=== PATIENT | female | born 1955 | race African-American/Black ===

== ENCOUNTER 2020-09-22 08:56 | Inpatient (IN) ==
[2020-09-22 10:04] LABS: Basophils % 0.2 % (0.0-0.8); Hematocrit 34.8 VOL% (35.7-47.0); Hemoglobin 10.8 GM/DL (12.0-16.0); Immature Granulocytes % 1.6 %; Immature Granulocytes Absolute 0.09 #; Lymphocytes # 0.9 10*3/uL (1.4-4.0); Lymphocytes % 16.4 % (21.3-54.2); Mean Corpuscular Volume 77.2 FL (87-102); Mean Platelet Volume 12.6 FL (9.6-12.0); Monocytes % 10.7 % (1.7-12.7); Neutrophils % 71.1 % (38.7-73.9); Platelet Count 157 T/CUMM (130-400); Red Blood Count 4.51 MC/CUMM (3.8-5.5); Red Cell Distribution Width 14.2 % (9.3-17.3); White Blood Count 5.6 T/CUMM (4-12)
[2020-09-22 10:23] LABS: Albumin 3.2 G/DL (3.4-5.0); Amorphous Crystals,Urine Occasional /HPF (Few); Bacteria,Urine Occasional /HPF (Few); Bilirubin,Total 0.4 MG/DL (0.2-1.0); Bilirubin,Urine Negative (Negative); Blood, Urine Moderate mg/dL (Negative); Calcium 8.2 MG/DL (8.5-10.1); Glucose,Urine (UA) Negative (Negative); Hyaline Casts,Urine 33 /LPF (0-3); Ketones,Urine Negative (Negative); Mucus,Urine Occasional /LPF (Occasional); Nitrite,Urine Negative (Negative); Osmolality,Calculated 300.8 MOS/KG (273-304); Protein,Urine 100 MG/DL; RBC,Urine 1 /HPF (0-4); Total Protein 7.4 G/DL (6.4-8.3); Urine Appearance Slightly Hazy (Clear); Urine Color Amber (Yellow); Urine Specific Gravity 1.018 (1.001-1.035); Urine Urobilinogen < 2.0 EU/DL (0.2-1.0); WBC,Urine 1 /HPF (0-6)
[2020-09-22 10:36] LABS: Ferritin 225.4 ng/ml (8-252)
[2020-09-22] MEDS ORDERED: cefTRIAXone 1,000 MG in SODIUM CHLORIDE 0.9% 100 ML IV STA (11:01)
[2020-09-22 11:13] LABS: Anisocytosis Slight; Band Neutrophils 8 % (0-10); Eosinophils 1 % (0-10); Hypochromasia 1+; Lymphocytes 17 % (20-55); Platelet Estimate Normal; Segmented Neutrophils 64 % (50-85); Total Cells Counted 100
[2020-09-22] MEDS ORDERED: DOCUSATE SODIUM 100 MG CAPSULE PO PRN (12:45)
[2020-09-22] MEDS ORDERED: GLUCAGON 1 MG VIAL IM PRN ×2 (12:45)
[2020-09-22] MEDS ORDERED: DEXTROSE 50% 25 GM/50 ML VIAL IV PRN ×2 (12:45)
[2020-09-22] MEDS ORDERED: ONDANSETRON 4 MG/2 ML VIAL IV PRN (12:45)
[2020-09-22] MEDS ORDERED: ACETAMINOPHEN 325 MG TABLET PO PRN (12:45)
[2020-09-22] MEDS ORDERED: AZITHROMYCIN INJ 500 MG in SODIUM CHLORIDE 0.9% 250 ML IV ONE (12:52)
[2020-09-22] MEDS: HEPARIN 5,000 UNIT/1 ML VIAL SUBCUT SCH ×2 (16:29→20:19)
[2020-09-22] MEDS: SODIUM CHLORIDE 0.9% 1,000 ML IV SCH (16:30)
[2020-09-22] MEDS: INSULIN REGULAR 100 UNIT/ML SUBCUT SCH ×2 (17:04→21:08)
[2020-09-22] MEDS: ASCORBIC ACID 500 MG TABLET PO SCH (20:20)
[2020-09-23] MEDS: HEPARIN 5,000 UNIT/1 ML VIAL SUBCUT SCH ×3 (05:50→21:55)
[2020-09-23 06:33] LABS: Basophils % 0.2 % (0.0-0.8); Hematocrit 36.2 VOL% (35.7-47.0); Hemoglobin 10.8 GM/DL (12.0-16.0); Immature Granulocytes % 1.1 %; Immature Granulocytes Absolute 0.06 #; Lymphocytes # 0.9 10*3/uL (1.4-4.0); Lymphocytes % 16.5 % (21.3-54.2); Mean Corpuscular HGB Conc 29.8 GM/DL (32-36); Mean Corpuscular Volume 81.2 FL (87-102); Mean Platelet Volume 12.8 FL (9.6-12.0); Monocytes % 8.9 % (1.7-12.7); NRBC # 0.02 10*3/uL; Neutrophils % 73.3 % (38.7-73.9); Platelet Count 171 T/CUMM (130-400); Red Blood Count 4.46 MC/CUMM (3.8-5.5); Red Cell Distribution Width 14.4 % (9.3-17.3); White Blood Count 5.7 T/CUMM (4-12)
[2020-09-23] MEDS: SODIUM CHLORIDE 0.9% 1,000 ML IV SCH ×2 (06:48→21:53)
[2020-09-23 07:03] LABS: Alanine Aminotransferase 25 U/L (13-56); Albumin 2.7 G/DL (3.4-5.0); Alkaline Phosphatase 49 U/L (45-117); Aspartate Amino Transferase 58 U/L (0-37); Bilirubin,Total < 0.39 MG/DL (0.2-1.0); Blood Urea Nitrogen 92 MG/DL (7-18); Estimated Glom Filtration Rate 16 ML/MIN; Glucose 136 MG/DL (74-106); Osmolality,Calculated 306.5 MOS/KG (273-304); Thyroid Stimulating Hormone 0.406 uIU/ml (0.358-3.74); Total Protein 7.3 G/DL (6.4-8.3)
[2020-09-23] MEDS: INSULIN REGULAR 100 UNIT/ML SUBCUT SCH ×4 (07:18→21:57)
[2020-09-23 07:28] LABS: Ferritin 207.7 ng/ml (8-252)
[2020-09-23 07:50] LABS: Anisocytosis 1+; Band Neutrophils 4 % (0-10); Burr Cells Few; Lymphocytes 15 % (20-55); Metamyelocytes 1 %; Nucleated Red Blood Cells 1 (0-5); Ovalocytes Few; Platelet Estimate Normal; Segmented Neutrophils 69 % (50-85); Total Cells Counted 100
[2020-09-23] MEDS: CHOLECALCIFEROL 1,000 UNIT TABLET PO SCH (09:45)
[2020-09-23] MEDS: PANTOPRAZOLE 40 MG TABLET PO SCH (09:45)
[2020-09-23] MEDS: AZITHROMYCIN 250 MG TABLET PO SCH (09:45)
[2020-09-23] MEDS: DEXAMETHASONE 4 MG/1 ML VIAL IV SCH (09:45)
[2020-09-23] MEDS: ZINC GLUCONATE 50 MG TABLET PO SCH (09:45)
[2020-09-23] MEDS: ASCORBIC ACID 500 MG TABLET PO SCH ×2 (09:45→21:55)
[2020-09-23] MEDS: cefTRIAXone 1,000 MG in SYRINGE 1 EACH IV SCH (12:37)
[2020-09-24 05:44] LABS: Hematocrit 32.9 VOL% (35.7-47.0); Hemoglobin 10.2 GM/DL (12.0-16.0); Immature Granulocytes % 4.8 %; Immature Granulocytes Absolute 0.25 #; Lymphocytes # 0.7 10*3/uL (1.4-4.0); Lymphocytes % 12.5 % (21.3-54.2); Mean Corpuscular Volume 78.3 FL (87-102); Mean Platelet Volume 12.8 FL (9.6-12.0); Monocytes % 10.2 % (1.7-12.7); NRBC # 0.02 10*3/uL; Neutrophils % 72.5 % (38.7-73.9); Platelet Count 215 T/CUMM (130-400); Red Cell Distribution Width 14.4 % (9.3-17.3); White Blood Count 5.2 T/CUMM (4-12)
[2020-09-24 06:20] LABS: Band Neutrophils 1 % (0-10); Lymphocytes 10 % (20-55); Nucleated Red Blood Cells 1 (0-5); Platelet Estimate Adequate; Segmented Neutrophils 74 % (50-85); Total Cells Counted 100
[2020-09-24 06:21] LABS: Hypochromasia 1+; Microcytosis 1+; Ovalocytes Slight
[2020-09-24] MEDS: HEPARIN 5,000 UNIT/1 ML VIAL SUBCUT SCH ×3 (06:40→21:26)
[2020-09-24] MEDS: DEXAMETHASONE 4 MG/1 ML VIAL IV SCH (08:18)
[2020-09-24] MEDS: AZITHROMYCIN 250 MG TABLET PO SCH (08:19)
[2020-09-24] MEDS: ASCORBIC ACID 500 MG TABLET PO SCH ×2 (08:19→21:25)
[2020-09-24] MEDS: ZINC GLUCONATE 50 MG TABLET PO SCH (08:19)
[2020-09-24] MEDS: PANTOPRAZOLE 40 MG TABLET PO SCH (08:19)
[2020-09-24] MEDS: CHOLECALCIFEROL 1,000 UNIT TABLET PO SCH (08:19)
[2020-09-24] MEDS: INSULIN REGULAR 100 UNIT/ML SUBCUT SCH ×4 (08:59→21:48)
[2020-09-24] MEDS: SODIUM BICARB INJ 100 MEQ in DEXTROSE 5% NACL 0.22% 1,000 ML IV SCH (11:23)
[2020-09-24] MEDS: SODIUM CHLORIDE 0.9% 1,000 ML IV SCH (11:23)
[2020-09-24] MEDS: cefTRIAXone 1,000 MG in SYRINGE 1 EACH IV SCH (11:23)
[2020-09-24 12:13] LABS: Alanine Aminotransferase 28 U/L (13-56); Albumin 2.9 G/DL (3.4-5.0); Alkaline Phosphatase 55 U/L (45-117); Aspartate Amino Transferase 53 U/L (0-37); Bilirubin,Total < 0.39 MG/DL (0.2-1.0); Blood Urea Nitrogen 67 MG/DL (7-18); Calcium 8.8 MG/DL (8.5-10.1); Estimated Glom Filtration Rate 37 ML/MIN; Glucose 147 MG/DL (74-106); Osmolality,Calculated 307.8 MOS/KG (273-304); Total Protein 7.9 G/DL (6.4-8.3)
[2020-09-24] MEDS: carvediloL 3.125 MG TABLET PO SCH ×2 (15:15→21:30)
[2020-09-24] MEDS ORDERED: INSULIN GLARGINE 100 UNIT/ML SUBCUT SCH (21:00)
[2020-09-24] MEDS ORDERED: ROSUVASTATIN 20 MG TABLET PO SCH (21:00)
[2020-09-24] MEDS: PREGABALIN 100 MG CAPSULE PO SCH (21:25)
[2020-09-25] MEDS: HEPARIN 5,000 UNIT/1 ML VIAL SUBCUT SCH (05:02)
[2020-09-25] MEDS: SODIUM BICARB INJ 100 MEQ in DEXTROSE 5% NACL 0.22% 1,000 ML IV SCH (05:03)
[2020-09-25 06:39] LABS: Risk Ratio 3.83; VLDL CHOLESTEROL 47.6 MG/DL
[2020-09-25 07:48] LABS: Albumin 2.9 G/DL (3.4-5.0); Bilirubin,Total 0.4 MG/DL (0.2-1.0); Calcium 8.6 MG/DL (8.5-10.1); Total Protein 7.2 G/DL (6.4-8.3)
[2020-09-25] MEDS: DEXAMETHASONE 4 MG/1 ML VIAL IV SCH (08:04)
[2020-09-25] MEDS: INSULIN REGULAR 100 UNIT/ML SUBCUT SCH ×2 (08:04→11:59)
[2020-09-25] MEDS: CHOLECALCIFEROL 1,000 UNIT TABLET PO SCH (08:05)
[2020-09-25] MEDS: carvediloL 3.125 MG TABLET PO SCH (08:05)
[2020-09-25] MEDS: ASCORBIC ACID 500 MG TABLET PO SCH (08:05)
[2020-09-25] MEDS: ZINC GLUCONATE 50 MG TABLET PO SCH (08:06)
[2020-09-25] MEDS: AZITHROMYCIN 250 MG TABLET PO SCH (08:06)
[2020-09-25] MEDS: PANTOPRAZOLE 40 MG TABLET PO SCH (08:06)
[2020-09-25] MEDS ORDERED: SODIUM POLYSTYRENE SULFATE 15 GM/60 ML BOTTLE PO ONE (08:44)
[2020-09-25] MEDS ORDERED: FERROUS SULFATE 325 MG TABLET PO SCH (09:00)
[2020-09-25] MEDS ORDERED: amLODIPine 10 MG TABLET PO SCH (09:00)
[2020-09-25] MEDS ORDERED: PIOGLITAZONE 15 MG TABLET PO SCH (09:00)
[2020-09-25] MEDS ORDERED: VITAMIN E 400 UNIT CAPSULE PO SCH (09:00)
[2020-09-25] MEDS: PREGABALIN 100 MG CAPSULE PO SCH (09:58)
[2020-09-25 11:30] VITALS: BP 128/62
[2020-09-25] MEDS: cefTRIAXone 1,000 MG in SYRINGE 1 EACH IV SCH ×2 (11:59→12:05)
== END 2020-09-25 12:50 | disposition home or self-care (01) | DRG 177 ==
LOC: EDUNIT# → EDBD → N.ED 08:56 → MERGE 12:06 → N.EDINP 12:06 → SUATTDRO 12:06 → N.EDINP 13:50 → N.2E 14:24
PROVIDERS: ADMIT Internal Medicine; ATTEND Internal Medicine

== ENCOUNTER 2020-10-11 11:08 | Inpatient (IN) ==
[2020-10-11 13:45] LABS: Basophils % 0.1 % (0.0-0.8); Eosinophils % 0.2 % (0.00-10.9); Hematocrit 32.7 VOL% (35.7-47.0); Hemoglobin 9.8 GM/DL (12.0-16.0); Immature Granulocytes % 0.5 %; Immature Granulocytes Absolute 0.06 #; Lymphocytes # 0.7 10*3/uL (1.4-4.0); Lymphocytes % 6.1 % (21.3-54.2); Monocytes % 4.9 % (1.7-12.7); Neutrophils % 88.2 % (38.7-73.9); Platelet Count 160 T/CUMM (130-400); Red Blood Count 4.14 MC/CUMM (3.8-5.5); Red Cell Distribution Width 15.3 % (9.3-17.3); White Blood Count 11.6 T/CUMM (4-12)
[2020-10-11 14:02] LABS: Alanine Aminotransferase 37 U/L (13-56); Albumin 2.3 G/DL (3.4-5.0); Alkaline Phosphatase 99 U/L (45-117); Aspartate Amino Transferase 26 U/L (0-37); Bilirubin,Total < 0.39 MG/DL (0.2-1.0); Blood Urea Nitrogen 87 MG/DL (7-18); Calcium 9.2 MG/DL (8.5-10.1); Carbon Dioxide 20 MMOL/L (21-32); Estimated Glom Filtration Rate 9 ML/MIN; Osmolality,Calculated 306.9 MOS/KG (273-304); Sodium 122 MMOL/L (136-145); Total Protein 8.2 G/DL (6.4-8.3)
[2020-10-11 14:14] LABS: Glucose 737 MG/DL (74-106); Potassium 6.3 MMOL/L (3.5-5.1)
[2020-10-11] MEDS ORDERED: SODIUM CHLORIDE 0.9% 1,000 ML IV STA (14:34)
[2020-10-11] MEDS ORDERED: INSULIN REGULAR 100 UNIT/ML IV STA (14:39)
[2020-10-11] MEDS ORDERED: SODIUM CHLORIDE 0.9% 500 ML IV STA (14:40)
[2020-10-11] MEDS ORDERED: SODIUM BICARBONATE 50 MEQ/50 ML VIAL IV STA (14:41)
[2020-10-11] MEDS ORDERED: LACTATED RINGERS 1,000 ML IV ONE (14:55)
[2020-10-11] MEDS ORDERED: ONDANSETRON 4 MG/2 ML VIAL IV PRN (15:27)
[2020-10-11] MEDS ORDERED: ALBUTEROL 2.5 MG/3 ML NEB RESP TX PRN (15:27)
[2020-10-11] MEDS ORDERED: FAMOTIDINE 20 MG/2 ML VIAL IV SCH (15:30)
[2020-10-11 15:50] LABS: Osmolality,Calculated 307.9 MOS/KG (273-304)
[2020-10-11 15:52] LABS: Potassium 6.8 MMOL/L (3.5-5.1)
[2020-10-11] MEDS ORDERED: ALBUTEROL/IPRATROPIUM 3 ML NEB RESP TX PRN (16:14)
[2020-10-11] MEDS ORDERED: SODIUM CHLORIDE 0.9% 2,000 ML IV ONE (17:17)
[2020-10-11] MEDS: cefTRIAXone 1,000 MG in SYRINGE 1 EACH IV SCH (17:29)
[2020-10-11] MEDS: methylPREDNISolone SOD SUC 40 MG/1 ML VIAL IV SCH (17:30)
[2020-10-11] MEDS: INSULIN LISPRO 100 UNIT/ML SUBCUT SCH (17:30)
[2020-10-11] MEDS: FAMOTIDINE 20 MG/2 ML VIAL IV SCH (17:30)
[2020-10-11 18:07] LABS: Bacteria,Urine Moderate /HPF (Few); Bilirubin,Urine Negative (Negative); Blood, Urine Small mg/dL (Negative); Glucose,Urine (UA) >=500 mg/dL (Negative); Hyaline Casts,Urine 9 /LPF (0-3); Ketones,Urine Negative (Negative); Mucus,Urine Occasional /LPF (Occasional); Nitrite,Urine Negative (Negative); Protein,Urine 30 MG/DL; RBC,Urine 10 /HPF (0-4); Urine Appearance CLOUDY (Clear); Urine Color Yellow (Yellow); Urine Specific Gravity 1.012 (1.001-1.035); Urine Urobilinogen < 2.0 EU/DL (0.2-1.0); WBC,Urine 10 /HPF (0-6)
[2020-10-11] MEDS: ENOXAPARIN 30 MG/0.3 ML SYRINGE SUBCUT SCH (20:58)
[2020-10-12] MEDS: INSULIN LISPRO 100 UNIT/ML SUBCUT SCH ×6 (00:18→21:20)
[2020-10-12 03:56] LABS: Basophils % 0.1 % (0.0-0.8); Hematocrit 29.4 VOL% (35.7-47.0); Hemoglobin 9.2 GM/DL (12.0-16.0); Immature Granulocytes % 0.6 %; Immature Granulocytes Absolute 0.05 #; Lymphocytes # 0.3 10*3/uL (1.4-4.0); Lymphocytes % 3.4 % (21.3-54.2); Mean Corpuscular HGB Conc 31.3 GM/DL (32-36); Mean Corpuscular Volume 76.6 FL (87-102); Mean Platelet Volume 14.2 FL (9.6-12.0); Monocytes % 1.2 % (1.7-12.7); Neutrophils % 94.7 % (38.7-73.9); Platelet Count 126 T/CUMM (130-400); Red Blood Count 3.84 MC/CUMM (3.8-5.5); Red Cell Distribution Width 14.8 % (9.3-17.3); White Blood Count 9.1 T/CUMM (4-12)
[2020-10-12 04:23] LABS: Albumin 1.9 G/DL (3.4-5.0); Bilirubin,Total 0.4 MG/DL (0.2-1.0); Calcium 8.8 MG/DL (8.5-10.1); Osmolality,Calculated 301.4 MOS/KG (273-304); Risk Ratio 2.3; Total Protein 7.2 G/DL (6.4-8.3)
[2020-10-12 04:35] LABS: Hypochromasia Slight; Lymphocytes 3 % (20-55); Microcytosis 1+; Platelet Estimate Normal; Segmented Neutrophils 96 % (50-85); Total Cells Counted 100
[2020-10-12] MEDS: methylPREDNISolone SOD SUC 40 MG/1 ML VIAL IV SCH ×2 (05:14→16:38)
[2020-10-12] MEDS ORDERED: INSULIN GLARGINE 100 UNIT/ML SUBCUT ONE (14:37)
[2020-10-12] MEDS: amLODIPine 10 MG TABLET PO SCH (15:23)
[2020-10-12] MEDS: FAMOTIDINE 20 MG/2 ML VIAL IV SCH (16:36)
[2020-10-12] MEDS: cefTRIAXone 1,000 MG in SYRINGE 1 EACH IV SCH (16:38)
[2020-10-12] MEDS: INSULIN GLARGINE 100 UNIT/ML SUBCUT SCH (21:20)
[2020-10-12] MEDS: ENOXAPARIN 30 MG/0.3 ML SYRINGE SUBCUT SCH (21:21)
[2020-10-12] MEDS: ROSUVASTATIN 20 MG TABLET PO SCH (21:21)
[2020-10-13] MEDS: INSULIN LISPRO 100 UNIT/ML SUBCUT SCH ×6 (02:09→21:41)
[2020-10-13] MEDS: methylPREDNISolone SOD SUC 40 MG/1 ML VIAL IV SCH ×2 (06:09→16:22)
[2020-10-13 06:30] LABS: Hematocrit 30.9 VOL% (35.7-47.0); Hemoglobin 9.7 GM/DL (12.0-16.0); Immature Granulocytes % 0.9 %; Lymphocytes # 0.6 10*3/uL (1.4-4.0); Lymphocytes % 5.2 % (21.3-54.2); Mean Corpuscular HGB Conc 31.4 GM/DL (32-36); Mean Corpuscular Volume 75.4 FL (87-102); Mean Platelet Volume 13.8 FL (9.6-12.0); Monocytes % 3.1 % (1.7-12.7); Neutrophils % 90.8 % (38.7-73.9); Red Cell Distribution Width 14.4 % (9.3-17.3); White Blood Count 10.8 T/CUMM (4-12)
[2020-10-13 06:33] LABS: Platelet Count 207 T/CUMM (130-400)
[2020-10-13 06:49] LABS: Hypochromasia 1+; Lymphocytes 3 % (20-55); Microcytosis 1+; Platelet Estimate Adequate; Segmented Neutrophils 95 % (50-85); Total Cells Counted 100
[2020-10-13 06:50] LABS: Calcium 9.4 MG/DL (8.5-10.1); Osmolality,Calculated 299.5 MOS/KG (273-304); Potassium 5.8 MMOL/L (3.5-5.1)
[2020-10-13] MEDS ORDERED: MAGNESIUM SULF RIDER 2 GM in PREMIX 1 EACH IV ONE (08:44)
[2020-10-13] MEDS ORDERED: SODIUM BICARB INJ 50 MEQ in STERILE WATER INJ 1,000 ML IV SCH (09:00)
[2020-10-13] MEDS: amLODIPine 10 MG TABLET PO SCH (09:05)
[2020-10-13] MEDS: INSULIN GLARGINE 100 UNIT/ML SUBCUT SCH ×2 (09:05→21:40)
[2020-10-13] MEDS: SODIUM CHLORIDE 0.9% 1,000 ML IV SCH (09:06)
[2020-10-13] MEDS: SODIUM BICARBONATE 650 MG TABLET PO SCH ×2 (14:29→21:32)
[2020-10-13] MEDS ORDERED: HydrOXYzine PAMOATE 50 MG CAPSULE PO PRN (16:11)
[2020-10-13] MEDS: FAMOTIDINE 20 MG/2 ML VIAL IV SCH (16:22)
[2020-10-13] MEDS: cefTRIAXone 1,000 MG in SYRINGE 1 EACH IV SCH (16:22)
[2020-10-13] MEDS ORDERED: GABAPENTIN 300 MG CAPSULE PO SCH (21:00)
[2020-10-13] MEDS: PREGABALIN 100 MG CAPSULE PO SCH (21:31)
[2020-10-13] MEDS: ROSUVASTATIN 20 MG TABLET PO SCH (21:31)
[2020-10-13] MEDS: ENOXAPARIN 30 MG/0.3 ML SYRINGE SUBCUT SCH (21:33)
[2020-10-14] MEDS: INSULIN LISPRO 100 UNIT/ML SUBCUT SCH ×3 (02:41→10:15)
[2020-10-14] MEDS: methylPREDNISolone SOD SUC 40 MG/1 ML VIAL IV SCH (05:26)
[2020-10-14 05:40] LABS: Hematocrit 30.9 VOL% (35.7-47.0); Hemoglobin 9.8 GM/DL (12.0-16.0); Immature Granulocytes % 0.9 %; Immature Granulocytes Absolute 0.08 #; Lymphocytes # 0.6 10*3/uL (1.4-4.0); Lymphocytes % 6.6 % (21.3-54.2); Mean Corpuscular HGB Conc 31.7 GM/DL (32-36); Mean Corpuscular Volume 74.6 FL (87-102); Mean Platelet Volume 13.7 FL (9.6-12.0); Monocytes % 5.1 % (1.7-12.7); Neutrophils % 87.4 % (38.7-73.9); Platelet Count 217 T/CUMM (130-400); Red Blood Count 4.14 MC/CUMM (3.8-5.5); Red Cell Distribution Width 14.4 % (9.3-17.3); White Blood Count 8.9 T/CUMM (4-12)
[2020-10-14 06:00] LABS: Calcium 9.1 MG/DL (8.5-10.1); Osmolality,Calculated 299.8 MOS/KG (273-304); Potassium 5.1 MMOL/L (3.5-5.1)
[2020-10-14 06:04] LABS: Hypochromasia 1+; Microcytosis 1+; Platelet Estimate Adequate
[2020-10-14] MEDS: SODIUM CHLORIDE 0.9% 1,000 ML IV SCH (06:16)
[2020-10-14] MEDS: SODIUM BICARBONATE 650 MG TABLET PO SCH (08:51)
[2020-10-14] MEDS: INSULIN GLARGINE 100 UNIT/ML SUBCUT SCH (08:52)
[2020-10-14] MEDS: PREGABALIN 100 MG CAPSULE PO SCH (08:52)
[2020-10-14] MEDS: amLODIPine 10 MG TABLET PO SCH (08:52)
[2020-10-14] MEDS ORDERED: ZINC GLUCONATE 50 MG TABLET PO SCH (09:00)
[2020-10-14] MEDS ORDERED: VITAMIN E 400 UNIT CAPSULE PO SCH (09:00)
[2020-10-14] MEDS ORDERED: FERROUS SULFATE 325 MG TABLET PO SCH (09:00)
[2020-10-14] MEDS ORDERED: CHOLECALCIFEROL 1,000 UNIT TABLET PO SCH (09:00)
[2020-10-14 12:55] VITALS: BP 140/76
== END 2020-10-14 12:57 | disposition home or self-care (01) | DRG 682 ==
LOC: N.ED 11:08 → SUATTDRO 15:28 → N.EDINP 15:28 → N.CC 16:59 → N.5E 10-12 15:06
PROVIDERS: ADMIT Internal Medicine; ATTEND Internal Medicine

== ENCOUNTER 2022-07-07 08:14 | Inpatient (IN) ==
[2022-07-07] MEDS ORDERED: ONDANSETRON 4 MG/2 ML VIAL ONE (08:47)
[2022-07-07] MEDS ORDERED: ONDANSETRON 4 MG/2 ML VIAL IV STA (08:50)
[2022-07-07] MEDS ORDERED: SODIUM CHLORIDE 0.9% 1,000 ML IV STA ×3 (08:50→10:37)
[2022-07-07 09:16] LABS: Basophils % 0.1 % (0.0-0.8); Eosinophils % 0.1 % (0.00-10.9); Hematocrit 40.1 VOL% (35.7-47.0); Hemoglobin 12.6 GM/DL (12.0-16.0); Immature Granulocytes % 0.6 %; Immature Granulocytes Absolute 0.11 #; Lymphocytes # 1.1 10*3/uL (1.4-4.0); Lymphocytes % 6.2 % (21.3-54.2); Mean Corpuscular HGB Conc 31.4 GM/DL (32-36); Mean Corpuscular Volume 75.7 FL (87-102); Monocytes % 5.5 % (1.7-12.7); Neutrophils % 87.5 % (38.7-73.9); Platelet Count 129 T/CUMM (130-400); Red Cell Distribution Width 14.3 % (9.3-17.3); White Blood Count 17.7 T/CUMM (4-12)
[2022-07-07 09:29] LABS: Albumin 2.6 G/DL (3.4-5.0); Bilirubin,Total 0.4 MG/DL (0.20-1.00); Calcium 8.1 MG/DL (8.5-10.1); Osmolality,Calculated 312.1 MOS/KG (273-304); Potassium 5.5 MMOL/L (3.5-5.1); Total Protein 5.6 G/DL (6.4-8.2)
[2022-07-07 10:31] LABS: Amorphous Crystals,Urine Occasional /HPF (Few); Bilirubin,Urine Negative (Negative); Blood, Urine Moderate mg/dL (Negative); Glucose,Urine (UA) 50 mg/dL (Negative); Hyaline Casts,Urine 3 /LPF (0-3); Ketones,Urine Negative (Negative); Mucus,Urine Occasional /LPF (Occasional); Nitrite,Urine Negative (Negative); Protein,Urine 30 mg/dL (Negative); Squamous Epithelial Cell,Urine Occasional /HPF (0-10); Urine Appearance CLOUDY (Clear); Urine Color Yellow (Yellow); Urine Specific Gravity 1.018 (1.001-1.035); Urine Urobilinogen < 2.0 eU/dL (<2.0)
[2022-07-07] MEDS ORDERED: DOCUSATE SODIUM 100 MG CAPSULE PO PRN (10:37)
[2022-07-07] MEDS ORDERED: GLUCAGON 1 MG VIAL IM PRN (10:37)
[2022-07-07] MEDS ORDERED: DEXTROSE 10% 250 ML BAG IV PRN (10:44)
[2022-07-07 12:06] LABS: Calcium 7.7 MG/DL (8.5-10.1); Osmolality,Calculated 310.1 MOS/KG (273-304); Potassium 5.6 MMOL/L (3.5-5.1)
[2022-07-07 12:18] LABS: Arterial Base Excess iSTAT -9 MMOL/L (-2.5-2.5); Arterial Bicarbonate iSTAT 17.9 MMOL/L (20-26); Arterial O2 Saturation iSTAT 74 % (95-100); Arterial PCO2 iSTAT 39 MM HG (35-48); Arterial PO2 iSTAT 45 MM HG (80-95); Arterial Total CO2 iSTAT 19 MMO/L (23-27); Arterial pH iSTAT 7.266 (7.35-7.45)
[2022-07-07] MEDS: SODIUM CHLORIDE 0.45% 1,000 ML IV SCH ×3 (13:44→23:09)
[2022-07-07] MEDS: CIPROFLOXACIN INJ 400 MG/200 ML PREMIX IV SCH (13:45)
[2022-07-07] MEDS: INSULIN LISPRO 100 UNIT/ML SUBCUT SCH ×2 (13:46→17:24)
[2022-07-07] MEDS: metroNIDAZOLE INJ 500 MG/100 ML PREMIX IV SCH (13:46)
[2022-07-07] MEDS: HydrOXYzine PAMOATE 25 MG CAPSULE PO SCH ×2 (14:40→22:18)
[2022-07-07] MEDS: SODIUM ZIRCONIUM CYCLOSILICATE 10 GM PACK PO SCH (14:43)
[2022-07-07 17:31] LABS: Calcium 7.4 MG/DL (8.5-10.1)
[2022-07-07] MEDS: MORPHINE ER 15 MG TABLET PO SCH (22:19)
[2022-07-07] MEDS: HEPARIN 5,000 UNIT/1 ML VIAL SUBCUT SCH (22:21)
[2022-07-07] MEDS: ONDANSETRON 4 MG/2 ML VIAL IV PRN (22:21)
[2022-07-08 00:07] LABS: Calcium 7.8 MG/DL (8.5-10.1); Osmolality,Calculated 308.1 MOS/KG (273-304); Potassium 4.9 MMOL/L (3.5-5.1)
[2022-07-08] MEDS: INSULIN LISPRO 100 UNIT/ML SUBCUT SCH ×4 (01:28→19:23)
[2022-07-08] MEDS: metroNIDAZOLE INJ 500 MG/100 ML PREMIX IV SCH ×3 (01:46→18:24)
[2022-07-08] MEDS ORDERED: SODIUM CHLORIDE 0.9% 250 ML IV ONE (02:16)
[2022-07-08] MEDS: CIPROFLOXACIN INJ 400 MG/200 ML PREMIX IV SCH ×2 (05:05→23:57)
[2022-07-08 05:45] LABS: Basophils % 0.1 % (0.0-0.8); Eosinophils % 0.1 % (0.00-10.9); Hematocrit 36.7 VOL% (35.7-47.0); Hemoglobin 11.8 GM/DL (12.0-16.0); Immature Granulocytes % 0.6 %; Immature Granulocytes Absolute 0.09 #; Lymphocytes % 6.7 % (21.3-54.2); Mean Corpuscular HGB Conc 32.2 GM/DL (32-36); Mean Corpuscular Volume 74.7 FL (87-102); Monocytes # 1.3 10*3/uL (0.11-0.8); Monocytes % 9.3 % (1.7-12.7); Neutrophils % 83.2 % (38.7-73.9); Platelet Count 99 T/CUMM (130-400); Red Blood Count 4.91 MC/CUMM (3.8-5.5); Red Cell Distribution Width 14.2 % (9.3-17.3); White Blood Count 14.1 T/CUMM (4-12)
[2022-07-08 06:01] LABS: Albumin 2.3 G/DL (3.4-5.0); Bilirubin,Total 0.4 MG/DL (0.20-1.00); Calcium 7.6 MG/DL (8.5-10.1); Osmolality,Calculated 308.1 MOS/KG (273-304); Potassium 4.9 MMOL/L (3.5-5.1); Total Protein 5.7 G/DL (6.4-8.2)
[2022-07-08 06:09] LABS: Hypochromia Slight; Microcytosis Slight; Platelet Estimate Decreased
[2022-07-08] MEDS ORDERED: PANTOPRAZOLE 40 MG TABLET PO SCH (09:00)
[2022-07-08] MEDS: LINACLOTIDE 145 MCG CAPSULE PO SCH (10:13)
[2022-07-08] MEDS: SODIUM ZIRCONIUM CYCLOSILICATE 10 GM PACK PO SCH (10:14)
[2022-07-08] MEDS: PRASUGREL 10 MG TABLET PO SCH (10:14)
[2022-07-08] MEDS: HydrOXYzine PAMOATE 25 MG CAPSULE PO SCH ×3 (10:15→21:09)
[2022-07-08] MEDS: PANTOPRAZOLE 40 MG TABLET PO SCH (10:15)
[2022-07-08] MEDS: HEPARIN 5,000 UNIT/1 ML VIAL SUBCUT SCH ×2 (10:21→21:10)
[2022-07-08] MEDS ORDERED: DEXTROSE 50% 25 GM/50 ML VIAL IV PRN (12:11)
[2022-07-08 15:30] LABS: VBG Base Excess -7.8 MEQ/L (0-4); VBG HCO3 17.8 MEQ/L (24-28); VBG Oxygen Saturation 77.8 %; VBG PCO2 43.1 MMHG (41-51); VBG PH 7.256; VBG PO2 55.4 MMHG (17-40); VBG Total CO2 17.5 MMOL/L
[2022-07-08] MEDS: MORPHINE ER 15 MG TABLET PO SCH (21:09)
[2022-07-09] MEDS: INSULIN LISPRO 100 UNIT/ML SUBCUT SCH ×4 (00:52→17:02)
[2022-07-09] MEDS: metroNIDAZOLE INJ 500 MG/100 ML PREMIX IV SCH (01:52)
[2022-07-09] MEDS: SODIUM CHLORIDE 0.45% 1,000 ML IV SCH ×6 (01:52→20:47)
[2022-07-09 05:25] LABS: Basophils % 0.1 % (0.0-0.8); Eosinophils # 0.1 10*3/uL (0.0-0.87); Eosinophils % 0.8 % (0.00-10.9); Hematocrit 32.6 VOL% (35.7-47.0); Hemoglobin 10.4 GM/DL (12.0-16.0); Immature Granulocytes % 0.4 %; Immature Granulocytes Absolute 0.04 #; Lymphocytes # 1.6 10*3/uL (1.4-4.0); Lymphocytes % 14.6 % (21.3-54.2); Mean Corpuscular HGB Conc 31.9 GM/DL (32-36); Mean Corpuscular Volume 75.6 FL (87-102); Monocytes # 1.2 10*3/uL (0.11-0.8); Monocytes % 10.7 % (1.7-12.7); Neutrophils % 73.4 % (38.7-73.9); Platelet Count 79 T/CUMM (130-400); Red Blood Count 4.31 MC/CUMM (3.8-5.5); Red Cell Distribution Width 14.2 % (9.3-17.3); White Blood Count 11.2 T/CUMM (4-12)
[2022-07-09 05:44] LABS: Albumin 2.5 G/DL (3.4-5.0); Bilirubin,Total 0.4 MG/DL (0.20-1.00); Calcium 7.9 MG/DL (8.5-10.1); Osmolality,Calculated 306.1 MOS/KG (273-304); Potassium 4.7 MMOL/L (3.5-5.1)
[2022-07-09 05:45] LABS: Hypochromia Slight; Microcytosis Slight; Ovalocytes Slight; Platelet Estimate Decreased
[2022-07-09] MEDS: HydrOXYzine PAMOATE 25 MG CAPSULE PO SCH ×3 (09:00→20:49)
[2022-07-09] MEDS: PRASUGREL 10 MG TABLET PO SCH (09:00)
[2022-07-09] MEDS: PANTOPRAZOLE 40 MG TABLET PO SCH (09:00)
[2022-07-09] MEDS: SODIUM ZIRCONIUM CYCLOSILICATE 10 GM PACK PO SCH (09:01)
[2022-07-09] MEDS: LINACLOTIDE 145 MCG CAPSULE PO SCH (09:01)
[2022-07-09] MEDS: HEPARIN 5,000 UNIT/1 ML VIAL SUBCUT SCH ×2 (09:06→20:50)
[2022-07-09] MEDS: metroNIDAZOLE 500 MG TABLET PO SCH ×3 (10:24→20:48)
[2022-07-09] MEDS ORDERED: CIPROFLOXACIN 500 MG TABLET PO SCH (11:00)
[2022-07-09] MEDS: MORPHINE ER 15 MG TABLET PO SCH (20:48)
[2022-07-09] MEDS: DOCUSATE SODIUM 100 MG CAPSULE PO SCH (20:49)
[2022-07-10] MEDS: INSULIN LISPRO 100 UNIT/ML SUBCUT SCH ×5 (00:07→23:38)
[2022-07-10] MEDS: ACETAMINOPHEN 325 MG TABLET PO PRN (00:08)
[2022-07-10] MEDS: SODIUM CHLORIDE 0.45% 1,000 ML IV SCH ×2 (05:16→20:11)
[2022-07-10 06:04] LABS: Basophils % 0.2 % (0.0-0.8); Eosinophils # 0.1 10*3/uL (0.0-0.87); Eosinophils % 0.7 % (0.00-10.9); Hematocrit 29.5 VOL% (35.7-47.0); Hemoglobin 9.4 GM/DL (12.0-16.0); Immature Granulocytes % 0.7 %; Lymphocytes # 1.6 10*3/uL (1.4-4.0); Lymphocytes % 10.5 % (21.3-54.2); Mean Corpuscular HGB Conc 31.9 GM/DL (32-36); Mean Corpuscular Volume 75.3 FL (87-102); Monocytes # 1.2 10*3/uL (0.11-0.8); Monocytes % 8.4 % (1.7-12.7); Neutrophils % 79.5 % (38.7-73.9); Platelet Count 76 T/CUMM (130-400); Red Blood Count 3.92 MC/CUMM (3.8-5.5); Red Cell Distribution Width 14.2 % (9.3-17.3); White Blood Count 14.7 T/CUMM (4-12)
[2022-07-10 06:25] LABS: Band Neutrophils 3 % (0-10); Eosinophils 2 % (0-10); Lymphocytes 9 % (20-55); Total Cells Counted 100
[2022-07-10 06:26] LABS: Microcytosis Slight; Ovalocytes Slight; Platelet Estimate Decreased
[2022-07-10 06:30] LABS: Albumin 2.4 G/DL (3.4-5.0); Bilirubin,Total 0.5 MG/DL (0.20-1.00); Calcium 8.2 MG/DL (8.5-10.1); Osmolality,Calculated 301.2 MOS/KG (273-304); Potassium 4.4 MMOL/L (3.5-5.1); Total Protein 6.2 G/DL (6.4-8.2)
[2022-07-10] MEDS: HydrOXYzine PAMOATE 25 MG CAPSULE PO SCH ×3 (08:31→20:09)
[2022-07-10] MEDS: PRASUGREL 10 MG TABLET PO SCH (08:31)
[2022-07-10] MEDS: DOCUSATE SODIUM 100 MG CAPSULE PO SCH ×2 (08:32→20:08)
[2022-07-10] MEDS: LINACLOTIDE 145 MCG CAPSULE PO SCH (08:32)
[2022-07-10] MEDS: SODIUM ZIRCONIUM CYCLOSILICATE 10 GM PACK PO SCH (08:33)
[2022-07-10] MEDS: HEPARIN 5,000 UNIT/1 ML VIAL SUBCUT SCH ×2 (08:36→20:08)
[2022-07-10] MEDS: PIPERACILLIN/TAZOBACTAM 3,375 MG in SODIUM CHLORIDE 0.9% 100 ML IV SCH ×2 (08:39→20:10)
[2022-07-10 09:09] LABS: Hepatitis B Core IgM Quant 0.05 Index; Hepatitis B Surface Ag Quant < 0.10 Index; Hepatitis B Surface Ag Result Non-Reactive (NonReactive); Hepatitis C Virus Ab Quant < 0.02 Index; Hepatitis C Virus Ab Result Non-Reactive (NonReactive)
[2022-07-10] MEDS: MORPHINE ER 15 MG TABLET PO SCH (20:09)
[2022-07-11] MEDS: SODIUM CHLORIDE 0.45% 1,000 ML IV SCH ×4 (04:51→17:25)
[2022-07-11 05:44] LABS: Basophils % 0.3 % (0.0-0.8); Eosinophils # 0.3 10*3/uL (0.0-0.87); Eosinophils % 2.1 % (0.00-10.9); Hematocrit 25.8 VOL% (35.7-47.0); Hemoglobin 8.3 GM/DL (12.0-16.0); Immature Granulocytes % 2.9 %; Immature Granulocytes Absolute 0.41 #; Lymphocytes # 1.6 10*3/uL (1.4-4.0); Lymphocytes % 11.2 % (21.3-54.2); Mean Corpuscular HGB Conc 32.2 GM/DL (32-36); Mean Corpuscular Volume 76.6 FL (87-102); Monocytes # 1.2 10*3/uL (0.11-0.8); Monocytes % 8.1 % (1.7-12.7); Neutrophils % 75.4 % (38.7-73.9); Platelet Count 72 T/CUMM (130-400); Red Blood Count 3.37 MC/CUMM (3.8-5.5); Red Cell Distribution Width 14.4 % (9.3-17.3); White Blood Count 14.3 T/CUMM (4-12)
[2022-07-11 06:04] LABS: Albumin 2.2 G/DL (3.4-5.0); Bilirubin,Total 0.5 MG/DL (0.20-1.00); Calcium 8.3 MG/DL (8.5-10.1); Osmolality,Calculated 308.5 MOS/KG (273-304); Potassium 4.3 MMOL/L (3.5-5.1); Total Protein 5.9 G/DL (6.4-8.2)
[2022-07-11 06:10] LABS: Platelet Estimate Decreased
[2022-07-11] MEDS: INSULIN LISPRO 100 UNIT/ML SUBCUT SCH ×4 (06:24→23:39)
[2022-07-11] MEDS: HEPARIN 5,000 UNIT/1 ML VIAL SUBCUT SCH ×2 (08:04→21:19)
[2022-07-11] MEDS: SODIUM ZIRCONIUM CYCLOSILICATE 10 GM PACK PO SCH (08:05)
[2022-07-11] MEDS: DOCUSATE SODIUM 100 MG CAPSULE PO SCH ×2 (08:05→21:19)
[2022-07-11] MEDS: LINACLOTIDE 145 MCG CAPSULE PO SCH (08:05)
[2022-07-11] MEDS: PRASUGREL 10 MG TABLET PO SCH (08:06)
[2022-07-11] MEDS: PIPERACILLIN/TAZOBACTAM 3,375 MG in SODIUM CHLORIDE 0.9% 100 ML IV SCH ×2 (08:06→21:20)
[2022-07-11] MEDS: HydrOXYzine PAMOATE 25 MG CAPSULE PO SCH ×2 (08:06→15:27)
[2022-07-11] MEDS: ACETAMINOPHEN 325 MG TABLET PO PRN (11:56)
[2022-07-11] MEDS: MORPHINE ER 15 MG TABLET PO SCH (21:20)
[2022-07-12] MEDS: ACETAMINOPHEN 325 MG TABLET PO PRN (00:32)
[2022-07-12] MEDS: SODIUM CHLORIDE 0.45% 1,000 ML IV SCH ×3 (02:14→16:19)
[2022-07-12 05:48] LABS: Basophils # 0.1 10*3/uL (0.0-0.2); Basophils % 0.4 % (0.0-0.8); Eosinophils # 0.5 10*3/uL (0.0-0.87); Eosinophils % 3.1 % (0.00-10.9); Hematocrit 25.7 VOL% (35.7-47.0); Hemoglobin 8.2 GM/DL (12.0-16.0); Immature Granulocytes % 7.8 %; Immature Granulocytes Absolute 1.13 #; Lymphocytes # 1.7 10*3/uL (1.4-4.0); Lymphocytes % 11.6 % (21.3-54.2); Mean Corpuscular HGB Conc 31.9 GM/DL (32-36); Mean Corpuscular Volume 76.3 FL (87-102); Monocytes # 1.6 10*3/uL (0.11-0.8); Monocytes % 10.9 % (1.7-12.7); Neutrophils % 66.2 % (38.7-73.9); Platelet Count 84 T/CUMM (130-400); Red Blood Count 3.37 MC/CUMM (3.8-5.5); Red Cell Distribution Width 14.3 % (9.3-17.3); White Blood Count 14.6 T/CUMM (4-12)
[2022-07-12] MEDS: INSULIN LISPRO 100 UNIT/ML SUBCUT SCH ×4 (06:11→23:51)
[2022-07-12 06:21] LABS: Albumin 2.2 G/DL (3.4-5.0); Bilirubin,Total 0.4 MG/DL (0.20-1.00); Calcium 8.6 MG/DL (8.5-10.1); Osmolality,Calculated 306.3 MOS/KG (273-304); Potassium 4.3 MMOL/L (3.5-5.1); Total Protein 6.1 G/DL (6.4-8.2)
[2022-07-12 06:22] LABS: Band Neutrophils 2 % (0-10); Eosinophils 1 % (0-10); Lymphocytes 16 % (20-55); Platelet Estimate Decreased; Total Cells Counted 100
[2022-07-12] MEDS: LINACLOTIDE 145 MCG CAPSULE PO SCH (08:51)
[2022-07-12] MEDS: PRASUGREL 10 MG TABLET PO SCH (08:51)
[2022-07-12] MEDS: DOCUSATE SODIUM 100 MG CAPSULE PO SCH ×2 (08:51→20:11)
[2022-07-12] MEDS: HEPARIN 5,000 UNIT/1 ML VIAL SUBCUT SCH ×2 (08:51→20:14)
[2022-07-12] MEDS: PIPERACILLIN/TAZOBACTAM 3,375 MG in SODIUM CHLORIDE 0.9% 100 ML IV SCH ×2 (08:51→20:14)
[2022-07-12] MEDS: SODIUM ZIRCONIUM CYCLOSILICATE 10 GM PACK PO SCH (08:54)
[2022-07-12 12:32] LABS: Bilirubin,Urine Negative (Negative); Blood, Urine Large mg/dL (Negative); Glucose,Urine (UA) >=500 mg/dL (Negative); Ketones,Urine Negative (Negative); Mucus,Urine Occasional /LPF (Occasional); Nitrite,Urine Negative (Negative); Protein,Urine 30 mg/dL (Negative); RBC,Urine 12 /HPF (0-4); Urine Appearance CLOUDY (Clear); Urine Color Yellow (Yellow); Urine Specific Gravity 1.013 (1.001-1.035); Urine Urobilinogen < 2.0 eU/dL (<2.0)
[2022-07-12] MEDS: MORPHINE ER 15 MG TABLET PO SCH (20:11)
[2022-07-13] MEDS: SODIUM CHLORIDE 0.45% 1,000 ML IV SCH ×2 (01:06→15:16)
[2022-07-13] MEDS: INSULIN LISPRO 100 UNIT/ML SUBCUT SCH ×3 (06:08→17:01)
[2022-07-13 06:22] LABS: Basophils # 0.1 10*3/uL (0.0-0.2); Basophils % 0.4 % (0.0-0.8); Eosinophils # 0.4 10*3/uL (0.0-0.87); Eosinophils % 3.1 % (0.00-10.9); Hematocrit 27.1 VOL% (35.7-47.0); Hemoglobin 8.4 GM/DL (12.0-16.0); Immature Granulocytes % 10.4 %; Immature Granulocytes Absolute 1.48 #; Lymphocytes # 1.9 10*3/uL (1.4-4.0); Lymphocytes % 13.3 % (21.3-54.2); Mean Corpuscular Volume 77.4 FL (87-102); Monocytes # 1.6 10*3/uL (0.11-0.8); Monocytes % 11.5 % (1.7-12.7); Neutrophils % 61.3 % (38.7-73.9); Platelet Count 96 T/CUMM (130-400); Red Cell Distribution Width 14.4 % (9.3-17.3); White Blood Count 14.2 T/CUMM (4-12)
[2022-07-13 06:24] LABS: Albumin 2.3 G/DL (3.4-5.0); Bilirubin,Total 0.4 MG/DL (0.20-1.00); Calcium 8.9 MG/DL (8.5-10.1); Osmolality,Calculated 300.8 MOS/KG (273-304); Potassium 4.3 MMOL/L (3.5-5.1); Total Protein 6.3 G/DL (6.4-8.2)
[2022-07-13 06:47] LABS: Eosinophils 2 % (0-10); Hypochromia Slight; Lymphocytes 13 % (20-55); Microcytosis Slight; Platelet Estimate Decreased; Total Cells Counted 100
[2022-07-13] MEDS: PIPERACILLIN/TAZOBACTAM 3,375 MG in SODIUM CHLORIDE 0.9% 100 ML IV SCH ×2 (08:23→16:52)
[2022-07-13] MEDS: HEPARIN 5,000 UNIT/1 ML VIAL SUBCUT SCH ×2 (08:25→22:26)
[2022-07-13] MEDS: LINACLOTIDE 145 MCG CAPSULE PO SCH (08:25)
[2022-07-13] MEDS: PRASUGREL 10 MG TABLET PO SCH (08:25)
[2022-07-13] MEDS: DOCUSATE SODIUM 100 MG CAPSULE PO SCH ×2 (08:25→22:25)
[2022-07-13] MEDS: SODIUM ZIRCONIUM CYCLOSILICATE 10 GM PACK PO SCH (08:25)
[2022-07-13] MEDS: MORPHINE ER 15 MG TABLET PO SCH ×2 (11:01→23:06)
[2022-07-13] MEDS: ONDANSETRON 4 MG/2 ML VIAL IV PRN ×2 (12:35→22:25)
[2022-07-13] MEDS: POLYETHYLENE GLYCOL POWDER 17 GM PACK PO SCH (12:46)
[2022-07-13] MEDS: SIMETHICONE CHEW 125 MG TABLET PO PRN ×2 (16:52→22:25)
[2022-07-14] MEDS: PIPERACILLIN/TAZOBACTAM 3,375 MG in SODIUM CHLORIDE 0.9% 100 ML IV SCH ×2 (00:30→09:02)
[2022-07-14] MEDS: INSULIN LISPRO 100 UNIT/ML SUBCUT SCH ×4 (00:33→18:37)
[2022-07-14] MEDS: ONDANSETRON 4 MG/2 ML VIAL IV PRN ×2 (04:07→09:03)
[2022-07-14 05:20] LABS: Basophils # 0.1 10*3/uL (0.0-0.2); Basophils % 0.3 % (0.0-0.8); Eosinophils # 0.2 10*3/uL (0.0-0.87); Eosinophils % 1.5 % (0.00-10.9); Hematocrit 28.6 VOL% (35.7-47.0); Hemoglobin 8.8 GM/DL (12.0-16.0); Immature Granulocytes % 9.6 %; Immature Granulocytes Absolute 1.52 #; Lymphocytes # 1.9 10*3/uL (1.4-4.0); Lymphocytes % 11.9 % (21.3-54.2); Mean Corpuscular HGB Conc 30.8 GM/DL (32-36); Mean Corpuscular Volume 77.1 FL (87-102); Mean Platelet Volume 13.6 FL (9.6-12.0); Monocytes # 1.6 10*3/uL (0.11-0.8); Monocytes % 10.4 % (1.7-12.7); NRBC # 0.02 10*3/uL; Neutrophils % 66.3 % (38.7-73.9); Platelet Count 118 T/CUMM (130-400); Red Blood Count 3.71 MC/CUMM (3.8-5.5); Red Cell Distribution Width 14.3 % (9.3-17.3); White Blood Count 15.8 T/CUMM (4-12)
[2022-07-14 05:52] LABS: Albumin 2.3 G/DL (3.4-5.0); Bilirubin,Total 0.5 MG/DL (0.20-1.00); Calcium 8.9 MG/DL (8.5-10.1); Osmolality,Calculated 295.8 MOS/KG (273-304); Potassium 4.1 MMOL/L (3.5-5.1); Total Protein 6.6 G/DL (6.4-8.2)
[2022-07-14 05:52] LABS: Band Neutrophils 4 % (0-10); Eosinophils 1 % (0-10); Hypochromia 1+; Lymphocytes 8 % (20-55); Microcytosis 1+; Myelocytes 1 %; Ovalocytes Slight; Polychromasia Slight; Total Cells Counted 100
[2022-07-14 05:53] LABS: Platelet Estimate Adequate
[2022-07-14] MEDS: SODIUM CHLORIDE 0.45% 1,000 ML IV SCH (08:09)
[2022-07-14] MEDS: POLYETHYLENE GLYCOL POWDER 17 GM PACK PO SCH (09:02)
[2022-07-14] MEDS: PRASUGREL 10 MG TABLET PO SCH (09:03)
[2022-07-14] MEDS: HEPARIN 5,000 UNIT/1 ML VIAL SUBCUT SCH ×2 (09:03→20:15)
[2022-07-14] MEDS: DOCUSATE SODIUM 100 MG CAPSULE PO SCH ×2 (09:03→20:14)
[2022-07-14] MEDS: LINACLOTIDE 145 MCG CAPSULE PO SCH (09:06)
[2022-07-14] MEDS: MORPHINE ER 15 MG TABLET PO SCH ×2 (09:08→20:14)
[2022-07-14] MEDS ORDERED: MAGNESIUM SULF RIDER 4 GM/100 ML PREMIX IV ONE (11:00)
[2022-07-14] MEDS ORDERED: LACTULOSE 20 GM/30 ML UDCUP PO ONE (11:09)
[2022-07-14] MEDS: LACTATED RINGERS 1,000 ML IV SCH ×2 (13:21→19:00)
[2022-07-14] MEDS: VANCOMYCIN 125 MG CAPSULE PO SCH (23:15)
[2022-07-15] MEDS: INSULIN LISPRO 100 UNIT/ML SUBCUT SCH ×3 (00:08→11:50)
[2022-07-15] MEDS: ONDANSETRON 4 MG/2 ML VIAL IV PRN (03:48)
[2022-07-15] MEDS: LACTATED RINGERS 1,000 ML IV SCH (05:12)
[2022-07-15] MEDS: VANCOMYCIN 125 MG CAPSULE PO SCH ×2 (05:36→11:49)
[2022-07-15 06:05] LABS: Basophils # 0.1 10*3/uL (0.0-0.2); Basophils % 0.3 % (0.0-0.8); Eosinophils # 0.2 10*3/uL (0.0-0.87); Hematocrit 27.4 VOL% (35.7-47.0); Hemoglobin 8.6 GM/DL (12.0-16.0); Immature Granulocytes % 8.3 %; Immature Granulocytes Absolute 1.31 #; Lymphocytes # 1.6 10*3/uL (1.4-4.0); Lymphocytes % 10.2 % (21.3-54.2); Mean Corpuscular HGB Conc 31.4 GM/DL (32-36); Mean Corpuscular Volume 78.3 FL (87-102); Mean Platelet Volume 13.7 FL (9.6-12.0); Monocytes # 1.3 10*3/uL (0.11-0.8); Monocytes % 8.4 % (1.7-12.7); NRBC # 0.02 10*3/uL; Neutrophils % 71.8 % (38.7-73.9); Platelet Count 152 T/CUMM (130-400); Red Cell Distribution Width 14.4 % (9.3-17.3); White Blood Count 15.7 T/CUMM (4-12)
[2022-07-15 06:27] LABS: Band Neutrophils 1 % (0-10); Hypochromia Slight; Lymphocytes 10 % (20-55); Microcytosis Slight; Platelet Estimate Adequate; Total Cells Counted 100
[2022-07-15 06:31] LABS: Albumin 2.4 G/DL (3.4-5.0); Bilirubin,Total 0.4 MG/DL (0.20-1.00); Calcium 9.3 MG/DL (8.5-10.1); Osmolality,Calculated 288.3 MOS/KG (273-304); Potassium 3.6 MMOL/L (3.5-5.1); Total Protein 6.7 G/DL (6.4-8.2)
[2022-07-15] MEDS: MORPHINE ER 15 MG TABLET PO SCH ×2 (08:26→08:37)
[2022-07-15] MEDS: LINACLOTIDE 145 MCG CAPSULE PO SCH (08:26)
[2022-07-15] MEDS: PRASUGREL 10 MG TABLET PO SCH (08:26)
[2022-07-15] MEDS: DOCUSATE SODIUM 100 MG CAPSULE PO SCH (08:27)
[2022-07-15] MEDS: HEPARIN 5,000 UNIT/1 ML VIAL SUBCUT SCH (08:27)
[2022-07-15] MEDS: POLYETHYLENE GLYCOL POWDER 17 GM PACK PO SCH (08:28)
[2022-07-15] MEDS ORDERED: PREGABALIN 100 MG CAPSULE PO SCH (09:00)
[2022-07-15 12:02] VITALS: BP 147/66
== END 2022-07-15 12:42 | disposition home health service (06) | DRG 871 ==
LOC: EDBD → EDUNIT# → N.ED 08:14 → SUATTDRO 11:50 → N.EDINP 11:50 → N.5E 12:37
PROVIDERS: ADMIT Internal Medicine; ATTEND Internal Medicine

== ENCOUNTER 2022-09-26 09:00 | Inpatient (IN) ==
[2022-09-26] MEDS ORDERED: SODIUM CHLORIDE 0.9% 1,000 ML IV STA (09:37)
[2022-09-26 10:12] LABS: Amorphous Crystals,Urine Occasional /HPF (Few); Bacteria,Urine Moderate /HPF (Few); Squamous Epithelial Cell,Urine Occasional /HPF (0-10); Urine Color Yellow (Yellow)
[2022-09-26 10:13] LABS: Bilirubin,Urine Negative (Negative); Blood, Urine Small mg/dL (Negative); Glucose,Urine (UA) 100 mg/dL (Negative); Ketones,Urine Negative (Negative); Nitrite,Urine Negative (Negative); Protein,Urine >=300 mg/dL (Negative); Urine Appearance Slightly Cloudy (Clear); Urine Specific Gravity > 1.030 (1.001-1.035); Urine Urobilinogen 0.2 eU/dL (<2.0)
[2022-09-26] MEDS ORDERED: CEFEPIME 2,000 MG in SODIUM CHLORIDE 0.9% 100 ML IV STA (10:22)
[2022-09-26] MEDS ORDERED: VANCOMYCIN INJ 1,500 MG in SODIUM CHLORIDE 0.9% 500 ML IV STA ×2 (10:22→10:39)
[2022-09-26 10:33] LABS: Barbiturates Screen,Urine Negative (Negative); Benzodiazepines Screen,Urine Negative (Negative); Cannabinoid Screen,Urine Negative (Negative); Opiate Screen,Urine Positive (Negative); Phencyclidine Screen,Urine Negative (Negative)
[2022-09-26] MEDS ORDERED: CEFEPIME 1,000 MG in SODIUM CHLORIDE 0.9% 100 ML IV STA (10:37)
[2022-09-26 10:59] LABS: Basophils % 0.1 % (0.0-0.8); Eosinophils % 0.1 % (0.00-10.9); Hematocrit 34.2 VOL% (35.7-47.0); Hemoglobin 10.9 GM/DL (12.0-16.0); Immature Granulocytes % 0.7 %; Lymphocytes # 0.4 10*3/uL (1.4-4.0); Lymphocytes % 2.6 % (21.3-54.2); Mean Corpuscular HGB Conc 31.9 GM/DL (32-36); Monocytes # 1.1 10*3/uL (0.11-0.8); Monocytes % 7.1 % (1.7-12.7); Neutrophils % 89.4 % (38.7-73.9); Platelet Count 81 T/CUMM (130-400); Red Blood Count 4.82 MC/CUMM (3.8-5.5); Red Cell Distribution Width 16.5 % (9.3-17.3); White Blood Count 15.3 T/CUMM (4-12)
[2022-09-26] MEDS ORDERED: LACTATED RINGERS 1,000 ML IV ONE (11:00)
[2022-09-26 11:13] LABS: INR 1.1; PT Patient Result 11.8 SECS (10.1-12.1); Partial Thromboplastin Time 36.7 SECS (23.7-32.9)
[2022-09-26] MEDS: NOREPINEPHRINE DRIP 8 MG/250 ML PREMIX IV PRN ×5 (11:25→23:51)
[2022-09-26 11:28] LABS: Albumin 2.2 G/DL (3.4-5.0); Bilirubin,Total 0.4 MG/DL (0.20-1.00); Calcium 6.7 MG/DL (8.5-10.1); Osmolality,Calculated 309.7 MOS/KG (273-304); Thyroid Stimulating Hormone 1.53 uIU/ml (0.358-3.74)
[2022-09-26 11:42] LABS: Potassium 7.5 MMOL/L (3.5-5.1)
[2022-09-26] MEDS ORDERED: ALBUTEROL 2.5 MG/3 ML NEB RESP TX STA (11:47)
[2022-09-26] MEDS ORDERED: CALCIUM GLUCONATE RIDER 2,000 MG/100 ML PREMIX IV ONE (11:47)
[2022-09-26] MEDS ORDERED: INSULIN REGULAR 100 UNIT/ML IV STA (11:49)
[2022-09-26] MEDS ORDERED: DEXTROSE 50% 25 GM/50 ML VIAL IV STA (11:54)
[2022-09-26] MEDS ORDERED: SODIUM BICARB INJ 150 MEQ in STERILE WATER INJ 850 ML IV SCH (12:00)
[2022-09-26] MEDS ORDERED: DEXTROSE 50% 25 GM/50 ML SYRINGE IV ONE (12:50)
[2022-09-26 13:28] LABS: Giant Platelets Few; Platelet Estimate Decreased
[2022-09-26] MEDS: SODIUM BICARB INJ 150 MEQ in STERILE WATER INJ 1,000 ML IV SCH ×2 (13:30→23:14)
[2022-09-26 14:37] LABS: Hepatitis B Core IgM Quant 0.14 Index; Hepatitis B Surface Ag Quant < 0.10 Index; Hepatitis B Surface Ag Result Non-Reactive (NonReactive); Hepatitis C Virus Ab Quant 0.02 Index; Hepatitis C Virus Ab Result Non-Reactive (NonReactive)
[2022-09-26 16:00] LABS: Calcium 6.9 MG/DL (8.5-10.1); Osmolality,Calculated 314.7 MOS/KG (273-304)
[2022-09-26 16:07] LABS: Potassium 6.6 MMOL/L (3.5-5.1)
[2022-09-26] MEDS ORDERED: HEPARIN 10,000 UNIT/10 ML VIAL IV SCH (18:00)
[2022-09-26] MEDS ORDERED: SODIUM CHLORIDE 0.9% 500 ML IV ONE (19:16)
[2022-09-26] MEDS ORDERED: ETOMIDATE 20 MG/10 ML VIAL IV ONE ×3 (20:21→20:38)
[2022-09-26] MEDS ORDERED: ROCURONIUM 100 MG/10 ML VIAL IV ONE (20:21)
[2022-09-26] MEDS ORDERED: MIDAZOLAM 10 MG/2 ML VIAL ONE (20:31)
[2022-09-26] MEDS ORDERED: MIDAZOLAM 10 MG/2 ML VIAL IV ONE ×2 (20:38→20:49)
[2022-09-26] MEDS ORDERED: SODIUM BICARBONATE 50 MEQ/50 ML VIAL IV ONE ×3 (20:42→20:57)
[2022-09-26] MEDS ORDERED: CALCIUM GLUCONATE RIDER 1,000 MG/50 ML PREMIX IV ONE ×2 (20:54→20:56)
[2022-09-26 21:00] LABS: Calcium 6.6 MG/DL (8.5-10.1); Osmolality,Calculated 303.5 MOS/KG (273-304); Potassium 5.2 MMOL/L (3.5-5.1)
[2022-09-26] MEDS ORDERED: MORPHINE ER 15 MG TABLET PO SCH (21:00)
[2022-09-26] MEDS: MIDAZOLAM DRIP 100 MG/100 ML PREMIX IV PRN (21:25)
[2022-09-26 21:48] LABS: VBG Base Excess -9.7 MEQ/L (0-4); VBG HCO3 16.7 MEQ/L (24-28); VBG Oxygen Saturation 98.2 %; VBG PCO2 33.4 MMHG (41-51); VBG PH 7.29; VBG Total CO2 14.5 MMOL/L
[2022-09-26 22:23] LABS: Arterial Bicarbonate iSTAT 17.3 MMOL/L (20-26); Arterial pH iSTAT 7.284 (7.35-7.45)
[2022-09-26 23:17] LABS: VBG Base Excess -23.3 MEQ/L (0-4); VBG HCO3 7.1 MEQ/L (24-28); VBG Oxygen Saturation 87.5 %; VBG PCO2 24.1 MMHG (41-51); VBG PH 7.009; VBG PO2 63.7 MMHG (17-40); VBG Total CO2 6.2 MMOL/L
[2022-09-26] MEDS: ENOXAPARIN 30 MG/0.3 ML SYRINGE SUBCUT SCH (23:34)
[2022-09-27] MEDS ORDERED: SODIUM CHLORIDE 0.9% 1,000 ML IV ONE (00:10)
[2022-09-27] MEDS ORDERED: SODIUM BICARBONATE 50 MEQ/50 ML VIAL IV ONE ×2 (00:15→04:08)
[2022-09-27 01:24] LABS: Albumin 1.7 G/DL (3.4-5.0); Bilirubin,Total 0.4 MG/DL (0.20-1.00); Calcium 6.4 MG/DL (8.5-10.1); Osmolality,Calculated 312.5 MOS/KG (273-304); Potassium 4.6 MMOL/L (3.5-5.1); Total Protein 4.7 G/DL (6.4-8.2)
[2022-09-27] MEDS: PIPERACILLIN/TAZOBACTAM 3,375 MG in SODIUM CHLORIDE 0.9% 100 ML IV SCH ×3 (01:35→20:51)
[2022-09-27] MEDS: NOREPINEPHRINE DRIP 8 MG/250 ML PREMIX IV PRN (01:38)
[2022-09-27] MEDS: NOREPINEPHRINE 16 MG in SODIUM CHLORIDE 0.9% 484 ML IV PRN ×4 (02:43→12:39)
[2022-09-27] MEDS ORDERED: DIGOXIN 0.5 MG/2 ML AMP IV ONE ×2 (04:06→05:15)
[2022-09-27] MEDS ORDERED: MAGNESIUM SULF RIDER 2 GM/50 ML PREMIX IV ONE (04:12)
[2022-09-27 04:23] LABS: VBG Base Excess -9.3 MEQ/L (0-4); VBG Oxygen Saturation 96.6 %; VBG PCO2 40.8 MMHG (41-51); VBG PH 7.245; VBG Total CO2 16.1 MMOL/L
[2022-09-27 04:25] LABS: Basophils % 0.1 % (0.0-0.8); Hematocrit 34.3 VOL% (35.7-47.0); Hemoglobin 11.3 GM/DL (12.0-16.0); Immature Granulocytes % 0.6 %; Immature Granulocytes Absolute 0.15 #; Lymphocytes # 0.7 10*3/uL (1.4-4.0); Lymphocytes % 2.8 % (21.3-54.2); Mean Corpuscular HGB Conc 32.9 GM/DL (32-36); Mean Corpuscular Volume 68.9 FL (87-102); Monocytes # 1.3 10*3/uL (0.11-0.8); Monocytes % 5.3 % (1.7-12.7); Neutrophils % 91.2 % (38.7-73.9); Platelet Count 81 T/CUMM (130-400); Red Blood Count 4.98 MC/CUMM (3.8-5.5); Red Cell Distribution Width 16.2 % (9.3-17.3); White Blood Count 25.2 T/CUMM (4-12)
[2022-09-27] MEDS: PHENYLEPHRINE DRIP 40 MG/250 ML PREMIX IV PRN ×4 (04:34→09:35)
[2022-09-27 04:43] LABS: Albumin 1.8 G/DL (3.4-5.0); Bilirubin,Total 0.4 MG/DL (0.20-1.00); Calcium 6.7 MG/DL (8.5-10.1); Osmolality,Calculated 307.7 MOS/KG (273-304); Potassium 4.8 MMOL/L (3.5-5.1); Total Protein 5.3 G/DL (6.4-8.2)
[2022-09-27] MEDS: MIDAZOLAM DRIP 100 MG/100 ML PREMIX IV PRN ×3 (04:49→17:09)
[2022-09-27 04:59] LABS: Band Neutrophils 2 % (0-10); Lymphocytes 2 % (20-55); Total Cells Counted 100
[2022-09-27 05:00] LABS: Hypochromia Slight; Microcytosis 1+; Ovalocytes Slight; Platelet Estimate Decreased; Target Cells Slight
[2022-09-27] MEDS ORDERED: SODIUM CHLORIDE 0.9% 500 ML IV ONE (05:05)
[2022-09-27] MEDS: INSULIN LISPRO 100 UNIT/ML SUBCUT SCH ×3 (08:16→18:38)
[2022-09-27] MEDS ORDERED: PANTOPRAZOLE 40 MG TABLET PO SCH (09:00)
[2022-09-27] MEDS: SODIUM BICARB INJ 150 MEQ in STERILE WATER INJ 1,000 ML IV SCH ×2 (09:11→19:20)
[2022-09-27] MEDS: INSULIN GLARGINE 100 UNIT/ML SUBCUT SCH (09:24)
[2022-09-27] MEDS: PANTOPRAZOLE 40 MG VIAL IV SCH (09:27)
[2022-09-27] MEDS: fentaNYL 50 MCG/HR PATCH TRANSDERM SCH (09:49)
[2022-09-27] MEDS: PHENYLEPHRINE INJ 160 MG in SODIUM CHLORIDE 0.9% 234 ML IV PRN ×3 (11:01→17:07)
[2022-09-27] MEDS: HYDROCORTISONE 100 MG VIAL IV SCH ×3 (11:09→22:52)
[2022-09-27] MEDS ORDERED: cefTRIAXone 1,000 MG in SODIUM CHLORIDE 0.9% 100 ML IV SCH (13:00)
[2022-09-27] MEDS: NOREPINEPHRINE 16 MG in SODIUM CHLORIDE 0.9% 234 ML IV PRN ×2 (16:35→23:33)
[2022-09-27] MEDS: ENOXAPARIN 30 MG/0.3 ML SYRINGE SUBCUT SCH (20:17)
[2022-09-28] MEDS: INSULIN LISPRO 100 UNIT/ML SUBCUT SCH ×4 (00:05→18:37)
[2022-09-28] MEDS: MIDAZOLAM DRIP 100 MG/100 ML PREMIX IV PRN ×2 (00:06→07:17)
[2022-09-28] MEDS: NOREPINEPHRINE 16 MG in SODIUM CHLORIDE 0.9% 234 ML IV PRN ×2 (01:20→09:14)
[2022-09-28] MEDS: PHENYLEPHRINE INJ 160 MG in SODIUM CHLORIDE 0.9% 234 ML IV PRN ×3 (02:31→22:25)
[2022-09-28] MEDS: HYDROCORTISONE 100 MG VIAL IV SCH ×4 (04:00→21:22)
[2022-09-28 04:13] LABS: ABG Base Excess 0.8 MMOL/L (-2.5-2.5); ABG HCO3 25.1 MMOL/L (20-26); ABG Oxygen Saturation 98.2 % (95-100); ABG PCO2 41.7 MM HG (35-48); ABG PH 7.399 (7.35-7.45); ABG TCO2 21.8 MMOL/L (23-27)
[2022-09-28 04:16] LABS: Basophils % 0.1 % (0.0-0.8); Hematocrit 32.2 VOL% (35.7-47.0); Hemoglobin 10.8 GM/DL (12.0-16.0); Immature Granulocytes % 0.6 %; Immature Granulocytes Absolute 0.12 #; Lymphocytes # 0.5 10*3/uL (1.4-4.0); Lymphocytes % 2.7 % (21.3-54.2); Mean Corpuscular HGB Conc 33.5 GM/DL (32-36); Mean Corpuscular Volume 67.4 FL (87-102); Monocytes % 4.9 % (1.7-12.7); Neutrophils % 91.7 % (38.7-73.9); Red Blood Count 4.78 MC/CUMM (3.8-5.5); Red Cell Distribution Width 15.8 % (9.3-17.3); White Blood Count 20.2 T/CUMM (4-12)
[2022-09-28 04:19] LABS: Platelet Count 63 T/CUMM (130-400)
[2022-09-28] MEDS: SODIUM BICARB INJ 150 MEQ in STERILE WATER INJ 1,000 ML IV SCH ×3 (04:36→22:26)
[2022-09-28 04:38] LABS: Band Neutrophils 3 % (0-10); Lymphocytes 3 % (20-55); Total Cells Counted 100
[2022-09-28 04:39] LABS: Hypochromia 1+; Microcytosis 1+
[2022-09-28 04:40] LABS: Platelet Estimate Decreased
[2022-09-28 04:42] LABS: Calcium 6.4 MG/DL (8.5-10.1); Osmolality,Calculated 305.4 MOS/KG (273-304); Potassium 4.2 MMOL/L (3.5-5.1)
[2022-09-28] MEDS ORDERED: CYANOCOBALAMIN 1000 MCG/1 ML VIAL SUBCUT SCH (09:00)
[2022-09-28] MEDS: PANTOPRAZOLE 40 MG VIAL IV SCH (10:10)
[2022-09-28] MEDS: PIPERACILLIN/TAZOBACTAM 3,375 MG in SODIUM CHLORIDE 0.9% 100 ML IV SCH ×2 (10:16→21:17)
[2022-09-28] MEDS: INSULIN GLARGINE 100 UNIT/ML SUBCUT SCH (10:18)
[2022-09-28] MEDS: ENOXAPARIN 30 MG/0.3 ML SYRINGE SUBCUT SCH (21:16)
[2022-09-29] MEDS: NOREPINEPHRINE 16 MG in SODIUM CHLORIDE 0.9% 234 ML IV PRN ×2 (00:04→17:52)
[2022-09-29] MEDS: INSULIN LISPRO 100 UNIT/ML SUBCUT SCH ×4 (00:12→18:10)
[2022-09-29 03:22] LABS: ABG Base Excess 5.6 MMOL/L (-2.5-2.5); ABG HCO3 29.5 MMOL/L (20-26); ABG Oxygen Saturation 98.2 % (95-100); ABG PCO2 42.1 MM HG (35-48); ABG PH 7.461 (7.35-7.45); ABG TCO2 27.2 MMOL/L (23-27)
[2022-09-29 03:57] LABS: Basophils % 0.1 % (0.0-0.8); Hematocrit 27.8 VOL% (35.7-47.0); Hemoglobin 9.2 GM/DL (12.0-16.0); Immature Granulocytes % 1.4 %; Immature Granulocytes Absolute 0.36 #; Lymphocytes # 0.7 10*3/uL (1.4-4.0); Lymphocytes % 2.8 % (21.3-54.2); Mean Corpuscular HGB Conc 33.1 GM/DL (32-36); Monocytes # 1.3 10*3/uL (0.11-0.8); Monocytes % 5.1 % (1.7-12.7); Neutrophils % 90.6 % (38.7-73.9); Platelet Count 57 T/CUMM (130-400); Red Blood Count 4.09 MC/CUMM (3.8-5.5); Red Cell Distribution Width 15.6 % (9.3-17.3); White Blood Count 25.7 T/CUMM (4-12)
[2022-09-29] MEDS: HYDROCORTISONE 100 MG VIAL IV SCH ×3 (04:01→18:09)
[2022-09-29 04:09] LABS: Calcium 6.1 MG/DL (8.5-10.1); Osmolality,Calculated 315.5 MOS/KG (273-304)
[2022-09-29 04:16] LABS: Hypochromia 1+; Lymphocytes 3 % (20-55); Microcytosis 1+; Ovalocytes Slight; Total Cells Counted 100
[2022-09-29 04:17] LABS: Platelet Estimate Decreased
[2022-09-29] MEDS: MIDAZOLAM DRIP 100 MG/100 ML PREMIX IV PRN (07:55)
[2022-09-29] MEDS: PANTOPRAZOLE 40 MG VIAL IV SCH (08:43)
[2022-09-29] MEDS: INSULIN GLARGINE 100 UNIT/ML SUBCUT SCH (08:43)
[2022-09-29] MEDS: PIPERACILLIN/TAZOBACTAM 3,375 MG in SODIUM CHLORIDE 0.9% 100 ML IV SCH ×2 (08:43→20:32)
[2022-09-29] MEDS ORDERED: ALTEPLASE 2 MG VIAL INTRACATH ONE (12:30)
[2022-09-29] MEDS: ENOXAPARIN 30 MG/0.3 ML SYRINGE SUBCUT SCH (20:32)
[2022-09-30] MEDS: INSULIN LISPRO 100 UNIT/ML SUBCUT SCH ×4 (00:05→18:00)
[2022-09-30] MEDS: HYDROCORTISONE 100 MG VIAL IV SCH ×3 (00:05→16:35)
[2022-09-30 04:26] LABS: Basophils % 0.1 % (0.0-0.8); Hematocrit 25.8 VOL% (35.7-47.0); Hemoglobin 8.4 GM/DL (12.0-16.0); Immature Granulocytes % 0.7 %; Immature Granulocytes Absolute 0.17 #; Lymphocytes # 0.7 10*3/uL (1.4-4.0); Lymphocytes % 2.8 % (21.3-54.2); Mean Corpuscular HGB Conc 32.6 GM/DL (32-36); Mean Corpuscular Volume 70.3 FL (87-102); Monocytes # 1.4 10*3/uL (0.11-0.8); Monocytes % 5.4 % (1.7-12.7); Platelet Count 42 T/CUMM (130-400); Red Blood Count 3.67 MC/CUMM (3.8-5.5); Red Cell Distribution Width 15.5 % (9.3-17.3); White Blood Count 25.1 T/CUMM (4-12)
[2022-09-30 04:41] LABS: Calcium 6.5 MG/DL (8.5-10.1); Osmolality,Calculated 321.7 MOS/KG (273-304); Potassium 3.6 MMOL/L (3.5-5.1)
[2022-09-30 04:46] LABS: Hypochromia 1+; Lymphocytes 3 % (20-55); Microcytosis 1+; Ovalocytes Slight; Platelet Estimate Decreased; Total Cells Counted 100
[2022-09-30 05:50] LABS: Arterial Base Excess iSTAT 6 MMOL/L (-2.5-2.5); Arterial Bicarbonate iSTAT 30.6 MMOL/L (20-26); Arterial O2 Saturation iSTAT 76 % (95-100); Arterial PCO2 iSTAT 46 MM HG (35-48); Arterial PO2 iSTAT 40 MM HG (80-95); Arterial Total CO2 iSTAT 32 MMO/L (23-27); Arterial pH iSTAT 7.427 (7.35-7.45)
[2022-09-30 06:30] LABS: Arterial Base Excess iSTAT 7 MMOL/L (-2.5-2.5); Arterial Bicarbonate iSTAT 31.6 MMOL/L (20-26); Arterial O2 Saturation iSTAT 99 % (95-100); Arterial PCO2 iSTAT 46 MM HG (35-48); Arterial PO2 iSTAT 138 MM HG (80-95); Arterial Total CO2 iSTAT 33 MMO/L (23-27); Arterial pH iSTAT 7.444 (7.35-7.45)
[2022-09-30] MEDS: INSULIN GLARGINE 100 UNIT/ML SUBCUT SCH (09:00)
[2022-09-30] MEDS: PANTOPRAZOLE 40 MG VIAL IV SCH (09:00)
[2022-09-30] MEDS: PIPERACILLIN/TAZOBACTAM 3,375 MG in SODIUM CHLORIDE 0.9% 100 ML IV SCH ×2 (09:00→20:10)
[2022-09-30] MEDS: fentaNYL 50 MCG/HR PATCH TRANSDERM SCH (09:00)
[2022-09-30] MEDS: NOREPINEPHRINE 16 MG in SODIUM CHLORIDE 0.9% 234 ML IV PRN ×2 (09:55→22:52)
[2022-09-30] MEDS: ZINC OXIDE PASTE 113 GM TUBE TOP SCH (20:10)
[2022-09-30] MEDS: ENOXAPARIN 30 MG/0.3 ML SYRINGE SUBCUT SCH (20:10)
[2022-10-01] MEDS: INSULIN LISPRO 100 UNIT/ML SUBCUT SCH ×4 (00:22→18:35)
[2022-10-01] MEDS: HYDROCORTISONE 100 MG VIAL IV SCH ×3 (00:22→18:35)
[2022-10-01 04:15] LABS: Arterial Base Excess iSTAT 7 MMOL/L (-2.5-2.5); Arterial Bicarbonate iSTAT 31.9 MMOL/L (20-26); Arterial O2 Saturation iSTAT 99 % (95-100); Arterial PCO2 iSTAT 46 MM HG (35-48); Arterial PO2 iSTAT 112 MM HG (80-95); Arterial Total CO2 iSTAT 33 MMO/L (23-27); Arterial pH iSTAT 7.446 (7.35-7.45)
[2022-10-01 09:06] LABS: Basophils % 0.1 % (0.0-0.8); Hematocrit 23.4 VOL% (35.7-47.0); Hemoglobin 7.5 GM/DL (12.0-16.0); Immature Granulocytes % 1.2 %; Lymphocytes # 0.8 10*3/uL (1.4-4.0); Lymphocytes % 3.1 % (21.3-54.2); Mean Corpuscular HGB Conc 32.1 GM/DL (32-36); Mean Corpuscular Volume 71.6 FL (87-102); Monocytes # 1.5 10*3/uL (0.11-0.8); Neutrophils % 89.6 % (38.7-73.9); Red Blood Count 3.27 MC/CUMM (3.8-5.5); Red Cell Distribution Width 15.9 % (9.3-17.3); White Blood Count 24.4 T/CUMM (4-12)
[2022-10-01 09:20] LABS: Platelet Count 29 T/CUMM (130-400)
[2022-10-01] MEDS: PIPERACILLIN/TAZOBACTAM 3,375 MG in SODIUM CHLORIDE 0.9% 100 ML IV SCH (09:23)
[2022-10-01] MEDS: ZINC OXIDE PASTE 113 GM TUBE TOP SCH ×2 (09:24→20:56)
[2022-10-01] MEDS: PANTOPRAZOLE 40 MG VIAL IV SCH (09:25)
[2022-10-01] MEDS: INSULIN GLARGINE 100 UNIT/ML SUBCUT SCH (09:37)
[2022-10-01 09:43] LABS: Albumin 1.8 G/DL (3.4-5.0); Bilirubin,Total 0.6 MG/DL (0.20-1.00); Calcium 6.8 MG/DL (8.5-10.1); Osmolality,Calculated 339.1 MOS/KG (273-304); Potassium 4.1 MMOL/L (3.5-5.1); Total Protein 5.2 G/DL (6.4-8.2)
[2022-10-01 09:56] LABS: Lymphocytes 3 % (20-55); Total Cells Counted 100
[2022-10-01 09:58] LABS: Hypochromia 1+
[2022-10-01 10:02] LABS: Microcytosis 1+; Ovalocytes Few
[2022-10-01 10:08] LABS: Platelet Estimate Normal
[2022-10-01] MEDS ORDERED: INSULIN GLARGINE 100 UNIT/ML SUBCUT SCH (10:30)
[2022-10-01] MEDS ORDERED: CLINDAMYCIN INJ 600 MG/50 ML PREMIX IV SCH (10:30)
[2022-10-01] MEDS ORDERED: INSULIN GLARGINE 100 UNIT/ML SUBCUT ONE (10:39)
[2022-10-01] MEDS ORDERED: METOPROLOL TARTRATE 5 MG/5 ML VIAL IV ONE (10:57)
[2022-10-01] MEDS: CLINDAMYCIN INJ 600 MG/50 ML PREMIX IV SCH ×2 (12:00→20:46)
[2022-10-01] MEDS: NOREPINEPHRINE 16 MG in SODIUM CHLORIDE 0.9% 234 ML IV PRN ×2 (14:50→22:36)
[2022-10-02] MEDS: INSULIN LISPRO 100 UNIT/ML SUBCUT SCH ×4 (00:02→18:18)
[2022-10-02] MEDS: HYDROCORTISONE 100 MG VIAL IV SCH ×3 (00:10→18:17)
[2022-10-02 03:56] LABS: Arterial Base Excess iSTAT 6 MMOL/L (-2.5-2.5); Arterial Bicarbonate iSTAT 30.6 MMOL/L (20-26); Arterial O2 Saturation iSTAT 99 % (95-100); Arterial PCO2 iSTAT 42 MM HG (35-48); Arterial PO2 iSTAT 135 MM HG (80-95); Arterial Total CO2 iSTAT 32 MMO/L (23-27); Arterial pH iSTAT 7.472 (7.35-7.45)
[2022-10-02] MEDS: CLINDAMYCIN INJ 600 MG/50 ML PREMIX IV SCH ×3 (04:07→20:20)
[2022-10-02 04:42] LABS: Basophils # 0.1 10*3/uL (0.0-0.2); Basophils % 0.2 % (0.0-0.8); Eosinophils # 0.1 10*3/uL (0.0-0.87); Eosinophils % 0.6 % (0.00-10.9); Hematocrit 22.7 VOL% (35.7-47.0); Hemoglobin 7.1 GM/DL (12.0-16.0); Immature Granulocytes % 4.5 %; Immature Granulocytes Absolute 1.03 #; Lymphocytes # 1.3 10*3/uL (1.4-4.0); Lymphocytes % 5.7 % (21.3-54.2); Mean Corpuscular HGB Conc 31.3 GM/DL (32-36); Mean Corpuscular Volume 72.5 FL (87-102); Monocytes % 8.8 % (1.7-12.7); Neutrophils % 80.2 % (38.7-73.9); Red Blood Count 3.13 MC/CUMM (3.8-5.5); Red Cell Distribution Width 15.9 % (9.3-17.3); White Blood Count 23.1 T/CUMM (4-12)
[2022-10-02 04:47] LABS: Platelet Count 14 T/CUMM (130-400)
[2022-10-02] MEDS ORDERED: SODIUM CHLORIDE 0.9% 1,000 ML IV PRN (04:50)
[2022-10-02 05:03] LABS: Calcium 7.9 MG/DL (8.5-10.1); Osmolality,Calculated 326.3 MOS/KG (273-304); Potassium 3.8 MMOL/L (3.5-5.1)
[2022-10-02 05:13] LABS: Band Neutrophils 2 % (0-10); Lymphocytes 3 % (20-55); Total Cells Counted 100
[2022-10-02 05:14] LABS: Hypochromia 1+; Microcytosis 1+; Target Cells Few
[2022-10-02 05:15] LABS: Ovalocytes Slight; Platelet Estimate Decreased
[2022-10-02] MEDS: INSULIN GLARGINE 100 UNIT/ML SUBCUT SCH (08:44)
[2022-10-02] MEDS: ZINC OXIDE PASTE 113 GM TUBE TOP SCH ×2 (08:44→20:26)
[2022-10-02] MEDS: ALBUTEROL 2.5 MG/3 ML NEB RESP TX PRN ×2 (10:08→12:53)
[2022-10-02] MEDS: ALBUTEROL 2.5 MG/3 ML NEB RESP TX SCH (19:51)
[2022-10-02] MEDS ORDERED: NOREPINEPHRINE DRIP 8 MG/250 ML PREMIX IV PRN (22:00)
[2022-10-03] MEDS: NOREPINEPHRINE 16 MG in SODIUM CHLORIDE 0.9% 234 ML IV PRN (00:10)
[2022-10-03] MEDS: ALBUTEROL 2.5 MG/3 ML NEB RESP TX SCH ×4 (00:27→19:09)
[2022-10-03] MEDS: INSULIN LISPRO 100 UNIT/ML SUBCUT SCH ×4 (00:38→17:05)
[2022-10-03] MEDS: HYDROCORTISONE 100 MG VIAL IV SCH ×3 (00:45→16:50)
[2022-10-03] MEDS: CLINDAMYCIN INJ 600 MG/50 ML PREMIX IV SCH ×3 (03:45→19:57)
[2022-10-03 04:20] LABS: Arterial Base Excess iSTAT 2 MMOL/L (-2.5-2.5); Arterial Bicarbonate iSTAT 27.4 MMOL/L (20-26); Arterial O2 Saturation iSTAT 95 % (95-100); Arterial PCO2 iSTAT 45 MM HG (35-48); Arterial PO2 iSTAT 78 MM HG (80-95); Arterial Total CO2 iSTAT 29 MMO/L (23-27); Arterial pH iSTAT 7.388 (7.35-7.45)
[2022-10-03 04:45] LABS: Basophils % 0.1 % (0.0-0.8); Eosinophils # 0.1 10*3/uL (0.0-0.87); Eosinophils % 0.3 % (0.00-10.9); Hematocrit 19.4 VOL% (35.7-47.0); Immature Granulocytes % 9.7 %; Immature Granulocytes Absolute 2.06 #; Lymphocytes # 1.2 10*3/uL (1.4-4.0); Lymphocytes % 5.6 % (21.3-54.2); Mean Corpuscular HGB Conc 31.4 GM/DL (32-36); Mean Corpuscular Volume 72.9 FL (87-102); Monocytes # 2.6 10*3/uL (0.11-0.8); Monocytes % 12.4 % (1.7-12.7); NRBC # 0.02 10*3/uL; Neutrophils % 71.9 % (38.7-73.9); Platelet Count 55 T/CUMM (130-400); Red Blood Count 2.66 MC/CUMM (3.8-5.5); Red Cell Distribution Width 16.4 % (9.3-17.3); White Blood Count 21.3 T/CUMM (4-12)
[2022-10-03 05:07] LABS: Calcium 7.8 MG/DL (8.5-10.1); Osmolality,Calculated 339.3 MOS/KG (273-304); Potassium 3.6 MMOL/L (3.5-5.1)
[2022-10-03 05:39] LABS: Hemoglobin 6.1 GM/DL (12.0-16.0)
[2022-10-03 06:08] LABS: Band Neutrophils 2 % (0-10); Lymphocytes 6 % (20-55); Myelocytes 2 %; Platelet Estimate Decreased; Target Cells 2+; Total Cells Counted 100
[2022-10-03 06:09] LABS: Anisocytosis 1+; Microcytosis 1+; Schistocytes Few
[2022-10-03] MEDS: ZINC OXIDE PASTE 113 GM TUBE TOP SCH ×2 (08:20→20:01)
[2022-10-03] MEDS: INSULIN GLARGINE 100 UNIT/ML SUBCUT SCH (08:20)
[2022-10-03] MEDS: fentaNYL 50 MCG/HR PATCH TRANSDERM SCH (11:01)
[2022-10-03 17:56] LABS: Hematocrit 25.2 VOL% (35.7-47.0); Hemoglobin 8.2 GM/DL (12.0-16.0)
[2022-10-04] MEDS: INSULIN LISPRO 100 UNIT/ML SUBCUT SCH ×4 (00:37→17:30)
[2022-10-04] MEDS: ALBUTEROL 2.5 MG/3 ML NEB RESP TX SCH ×4 (01:06→18:43)
[2022-10-04] MEDS: HYDROCORTISONE 100 MG VIAL IV SCH ×3 (01:22→17:30)
[2022-10-04] MEDS ORDERED: INSULIN REGULAR 100 UNIT/ML IV ONE ×4 (02:40→19:59)
[2022-10-04] MEDS ORDERED: INSULIN REGULAR 100 UNIT/ML ONE (02:40)
[2022-10-04 04:13] LABS: Arterial Base Excess iSTAT 0 MMOL/L (-2.5-2.5); Arterial Bicarbonate iSTAT 25.5 MMOL/L (20-26); Arterial O2 Saturation iSTAT 97 % (95-100); Arterial PCO2 iSTAT 46 MM HG (35-48); Arterial PO2 iSTAT 100 MM HG (80-95); Arterial Total CO2 iSTAT 27 MMO/L (23-27)
[2022-10-04] MEDS: CLINDAMYCIN INJ 600 MG/50 ML PREMIX IV SCH ×3 (04:36→20:18)
[2022-10-04 05:51] LABS: Calcium 7.9 MG/DL (8.5-10.1); Osmolality,Calculated 339.4 MOS/KG (273-304); Potassium 3.7 MMOL/L (3.5-5.1)
[2022-10-04 06:00] LABS: Basophils % 0.2 % (0.0-0.8); Eosinophils % 0.2 % (0.00-10.9); Hematocrit 23.9 VOL% (35.7-47.0); Hemoglobin 7.7 GM/DL (12.0-16.0); Immature Granulocytes % 9.2 %; Lymphocytes # 0.6 10*3/uL (1.4-4.0); Lymphocytes % 3.6 % (21.3-54.2); Mean Corpuscular HGB Conc 32.2 GM/DL (32-36); Mean Corpuscular Volume 78.6 FL (87-102); Monocytes # 0.8 10*3/uL (0.11-0.8); Monocytes % 4.5 % (1.7-12.7); Neutrophils % 82.3 % (38.7-73.9); Red Blood Count 3.04 MC/CUMM (3.8-5.5); White Blood Count 17.4 T/CUMM (4-12)
[2022-10-04 06:19] LABS: Platelet Count 35 T/CUMM (130-400)
[2022-10-04 06:46] LABS: Band Neutrophils 13 % (0-10); Hypersegmented Neutrophil Few; Lymphocytes 9 % (20-55); Metamyelocytes 2 %; Myelocytes 1 %; Platelet Estimate Decreased; Total Cells Counted 100
[2022-10-04 06:47] LABS: Anisocytosis 1+
[2022-10-04 06:48] LABS: Tear Drop Cells Few
[2022-10-04] MEDS: ZINC OXIDE PASTE 113 GM TUBE TOP SCH ×2 (08:42→20:19)
[2022-10-04] MEDS: INSULIN GLARGINE 100 UNIT/ML SUBCUT SCH (09:30)
[2022-10-04] MEDS ORDERED: INSULIN GLARGINE 100 UNIT/ML SUBCUT ONE ×3 (14:36→16:00)
[2022-10-04] MEDS ORDERED: INSULIN LISPRO 100 UNIT/ML SUBCUT ONE (22:10)
[2022-10-05] MEDS: HYDROCORTISONE 100 MG VIAL IV SCH ×3 (00:07→16:05)
[2022-10-05] MEDS: INSULIN LISPRO 100 UNIT/ML SUBCUT SCH ×5 (00:09→17:15)
[2022-10-05] MEDS: CLINDAMYCIN INJ 600 MG/50 ML PREMIX IV SCH ×3 (03:10→19:55)
[2022-10-05 03:53] LABS: Basophils % 0.1 % (0.0-0.8); Hematocrit 21.9 VOL% (35.7-47.0); Immature Granulocytes % 6.5 %; Immature Granulocytes Absolute 1.27 #; Lymphocytes # 0.7 10*3/uL (1.4-4.0); Lymphocytes % 3.4 % (21.3-54.2); Mean Corpuscular Volume 77.7 FL (87-102); Monocytes # 1.8 10*3/uL (0.11-0.8); Monocytes % 9.2 % (1.7-12.7); Neutrophils % 80.8 % (38.7-73.9); Platelet Count 47 T/CUMM (130-400); Red Blood Count 2.82 MC/CUMM (3.8-5.5); Red Cell Distribution Width 19.6 % (9.3-17.3); White Blood Count 19.5 T/CUMM (4-12)
[2022-10-05 04:18] LABS: Albumin 1.8 G/DL (3.4-5.0); Bilirubin,Total 0.4 MG/DL (0.20-1.00); Calcium 7.8 MG/DL (8.5-10.1); Osmolality,Calculated 349.4 MOS/KG (273-304); Total Protein 5.9 G/DL (6.4-8.2)
[2022-10-05 04:51] LABS: ABG Base Excess -3.4 MMOL/L (-2.5-2.5); ABG HCO3 21.6 MMOL/L (20-26); ABG Oxygen Saturation 98.1 % (95-100); ABG PCO2 43.4 MM HG (35-48); ABG PH 7.321 (7.35-7.45); ABG TCO2 21.4 MMOL/L (23-27)
[2022-10-05 04:52] LABS: Band Neutrophils 1 % (0-10); Lymphocytes 5 % (20-55); Platelet Estimate Decreased; Total Cells Counted 100
[2022-10-05 04:53] LABS: Anisocytosis Slight; Spherocytes Few
[2022-10-05 04:54] LABS: Hypochromia Slight
[2022-10-05] MEDS: ALBUTEROL 2.5 MG/3 ML NEB RESP TX SCH ×4 (07:17→18:33)
[2022-10-05] MEDS: ZINC OXIDE PASTE 113 GM TUBE TOP SCH ×2 (08:06→21:01)
[2022-10-05] MEDS ORDERED: INSULIN GLARGINE 100 UNIT/ML SUBCUT SCH (09:00)
[2022-10-05] MEDS ORDERED: INSULIN GLARGINE 100 UNIT/ML SUBCUT ONE ×2 (09:01→11:00)
[2022-10-05] MEDS ORDERED: FONDAPARINUX 2.5 MG/0.5 ML SYRINGE SUBCUT SCH (18:00)
[2022-10-06] MEDS: INSULIN LISPRO 100 UNIT/ML SUBCUT SCH ×5 (00:08→23:57)
[2022-10-06] MEDS: HYDROCORTISONE 100 MG VIAL IV SCH ×3 (00:09→20:23)
[2022-10-06] MEDS: ALBUTEROL 2.5 MG/3 ML NEB RESP TX SCH ×5 (00:16→19:22)
[2022-10-06] MEDS: CLINDAMYCIN INJ 600 MG/50 ML PREMIX IV SCH ×3 (03:38→20:24)
[2022-10-06 04:16] LABS: Arterial Base Excess iSTAT -3 MMOL/L (-2.5-2.5); Arterial Bicarbonate iSTAT 22.3 MMOL/L (20-26); Arterial O2 Saturation iSTAT 98 % (95-100); Arterial PCO2 iSTAT 42 MM HG (35-48); Arterial PO2 iSTAT 108 MM HG (80-95); Arterial Total CO2 iSTAT 24 MMO/L (23-27)
[2022-10-06 05:23] LABS: Basophils % 0.1 % (0.0-0.8); Hematocrit 22.3 VOL% (35.7-47.0); Hemoglobin 7.1 GM/DL (12.0-16.0); Immature Granulocytes % 4.1 %; Lymphocytes # 0.6 10*3/uL (1.4-4.0); Lymphocytes % 2.8 % (21.3-54.2); Mean Corpuscular HGB Conc 31.8 GM/DL (32-36); Mean Corpuscular Volume 77.4 FL (87-102); Monocytes # 1.3 10*3/uL (0.11-0.8); Platelet Count 58 T/CUMM (130-400); Red Blood Count 2.88 MC/CUMM (3.8-5.5); Red Cell Distribution Width 19.9 % (9.3-17.3); White Blood Count 21.8 T/CUMM (4-12)
[2022-10-06 05:46] LABS: Hypochromia 1+; Lymphocytes 4 % (20-55); Microcytosis 1+; Platelet Estimate Decreased; Total Cells Counted 100
[2022-10-06 06:38] LABS: Albumin 1.9 G/DL (3.4-5.0); Bilirubin,Total 0.4 MG/DL (0.20-1.00); Calcium 7.4 MG/DL (8.5-10.1); Osmolality,Calculated 367.3 MOS/KG (273-304); Potassium 4.1 MMOL/L (3.5-5.1); Total Protein 5.9 G/DL (6.4-8.2)
[2022-10-06] MEDS: INSULIN GLARGINE 100 UNIT/ML SUBCUT SCH (09:12)
[2022-10-06] MEDS: ZINC OXIDE PASTE 113 GM TUBE TOP SCH ×2 (09:12→20:24)
[2022-10-07] MEDS: ALBUTEROL 2.5 MG/3 ML NEB RESP TX SCH ×4 (00:09→18:57)
[2022-10-07] MEDS: CLINDAMYCIN INJ 600 MG/50 ML PREMIX IV SCH ×3 (03:32→20:30)
[2022-10-07 04:58] LABS: Basophils # 0.1 10*3/uL (0.0-0.2); Basophils % 0.2 % (0.0-0.8); Hematocrit 22.9 VOL% (35.7-47.0); Hemoglobin 7.4 GM/DL (12.0-16.0); Immature Granulocytes Absolute 0.92 #; Lymphocytes # 1.2 10*3/uL (1.4-4.0); Lymphocytes % 3.8 % (21.3-54.2); Mean Corpuscular HGB Conc 32.3 GM/DL (32-36); Mean Corpuscular Volume 76.6 FL (87-102); Monocytes # 1.6 10*3/uL (0.11-0.8); Monocytes % 5.2 % (1.7-12.7); Neutrophils % 87.8 % (38.7-73.9); Platelet Count 74 T/CUMM (130-400); Red Blood Count 2.99 MC/CUMM (3.8-5.5); Red Cell Distribution Width 20.3 % (9.3-17.3); White Blood Count 30.5 T/CUMM (4-12)
[2022-10-07 05:30] LABS: Lymphocytes 3 % (20-55); Platelet Estimate Decreased; Total Cells Counted 100
[2022-10-07 05:31] LABS: Albumin 2.1 G/DL (3.4-5.0); Bilirubin,Total 0.4 MG/DL (0.20-1.00); Calcium 7.9 MG/DL (8.5-10.1); Osmolality,Calculated 344.3 MOS/KG (273-304); Potassium 3.8 MMOL/L (3.5-5.1); Total Protein 6.3 G/DL (6.4-8.2)
[2022-10-07] MEDS: INSULIN LISPRO 100 UNIT/ML SUBCUT SCH ×3 (06:30→18:26)
[2022-10-07] MEDS: INSULIN GLARGINE 100 UNIT/ML SUBCUT SCH (09:30)
[2022-10-07] MEDS: HYDROCORTISONE 100 MG VIAL IV SCH (09:35)
[2022-10-07] MEDS: ZINC OXIDE PASTE 113 GM TUBE TOP SCH ×2 (09:40→21:31)
[2022-10-07] MEDS ORDERED: BUPIVACAINE MPF 0.25% 10 ML VIAL ONE (11:58)
[2022-10-07] MEDS ORDERED: HEPARIN 5,000 UNIT/1 ML VIAL ONE (11:58)
[2022-10-07] MEDS ORDERED: LIDOCAINE 1%/EPI INJ 20 ML VIAL ONE (11:58)
[2022-10-07] MEDS ORDERED: MIDAZOLAM 2 MG/2 ML VIAL ONE (12:21)
[2022-10-07] MEDS ORDERED: fentaNYL 100 MCG/2 ML VIAL ONE (12:21)
[2022-10-07] MEDS ORDERED: SODIUM CHLORIDE 0.9% 250 ML IV SCH (12:30)
[2022-10-07] MEDS ORDERED: ceFAZolin 1,000 MG VIAL ONE (12:31)
[2022-10-07] MEDS ORDERED: propofoL 200 MG/20 ML VIAL IV ONE (12:37)
[2022-10-07] MEDS ORDERED: LIDOCAINE 2% 5 ML VIAL ONE (12:37)
[2022-10-07] MEDS: HYDROCORTISONE 10 MG TABLET PO SCH (21:31)
[2022-10-08] MEDS: ALBUTEROL 2.5 MG/3 ML NEB RESP TX SCH ×4 (00:39→19:05)
[2022-10-08] MEDS: INSULIN LISPRO 100 UNIT/ML SUBCUT SCH ×4 (00:44→18:32)
[2022-10-08] MEDS: CLINDAMYCIN INJ 600 MG/50 ML PREMIX IV SCH ×3 (04:50→20:30)
[2022-10-08 07:16] LABS: Calcium 7.7 MG/DL (8.5-10.1); Potassium 3.6 MMOL/L (3.5-5.1)
[2022-10-08 07:35] LABS: Basophils % 0.1 % (0.0-0.8); Hematocrit 22.2 VOL% (35.7-47.0); Hemoglobin 7.2 GM/DL (12.0-16.0); Immature Granulocytes % 1.4 %; Immature Granulocytes Absolute 0.23 #; Lymphocytes # 0.7 10*3/uL (1.4-4.0); Lymphocytes % 4.4 % (21.3-54.2); Mean Corpuscular HGB Conc 32.4 GM/DL (32-36); Monocytes # 0.7 10*3/uL (0.11-0.8); Neutrophils % 90.1 % (38.7-73.9); Platelet Count 71 T/CUMM (130-400); Red Blood Count 2.92 MC/CUMM (3.8-5.5); Red Cell Distribution Width 20.1 % (9.3-17.3); White Blood Count 16.7 T/CUMM (4-12)
[2022-10-08 07:47] LABS: Lymphocytes 3 % (20-55); Total Cells Counted 100
[2022-10-08 07:49] LABS: Microcytosis 1+
[2022-10-08 07:52] LABS: Hypochromia 1+
[2022-10-08 07:55] LABS: Platelet Estimate Decreased
[2022-10-08] MEDS: HYDROCORTISONE 10 MG TABLET PO SCH ×2 (08:00→20:55)
[2022-10-08] MEDS: ZINC OXIDE PASTE 113 GM TUBE TOP SCH ×2 (08:00→20:55)
[2022-10-08] MEDS: CITALOPRAM 20 MG TABLET PO SCH (08:00)
[2022-10-08] MEDS: INSULIN GLARGINE 100 UNIT/ML SUBCUT SCH (12:24)
[2022-10-08] MEDS: ONDANSETRON 4 MG/2 ML VIAL IV PRN ×2 (12:24→20:00)
[2022-10-08] MEDS ORDERED: METOCLOPRAMIDE 10 MG/2 ML VIAL ONE (21:19)
[2022-10-08] MEDS: METOCLOPRAMIDE 10 MG/2 ML VIAL IV PRN (21:20)
[2022-10-09] MEDS: INSULIN LISPRO 100 UNIT/ML SUBCUT SCH ×4 (00:25→17:28)
[2022-10-09] MEDS: ALBUTEROL 2.5 MG/3 ML NEB RESP TX SCH ×4 (00:25→19:27)
[2022-10-09] MEDS: CLINDAMYCIN INJ 600 MG/50 ML PREMIX IV SCH ×3 (03:44→20:41)
[2022-10-09 05:39] LABS: Basophils % 0.1 % (0.0-0.8); Eosinophils % 0.1 % (0.00-10.9); Hematocrit 20.6 VOL% (35.7-47.0); Hemoglobin 6.6 GM/DL (12.0-16.0); Immature Granulocytes % 0.7 %; Immature Granulocytes Absolute 0.13 #; Lymphocytes # 0.6 10*3/uL (1.4-4.0); Lymphocytes % 3.6 % (21.3-54.2); Monocytes # 0.7 10*3/uL (0.11-0.8); Monocytes % 4.1 % (1.7-12.7); Neutrophils % 91.4 % (38.7-73.9); Platelet Count 77 T/CUMM (130-400); Red Blood Count 2.64 MC/CUMM (3.8-5.5); Red Cell Distribution Width 20.4 % (9.3-17.3); White Blood Count 17.6 T/CUMM (4-12)
[2022-10-09 05:57] LABS: Calcium 8.1 MG/DL (8.5-10.1); Osmolality,Calculated 305.4 MOS/KG (273-304); Potassium 3.6 MMOL/L (3.5-5.1)
[2022-10-09 05:58] LABS: Hypochromia 1+; Lymphocytes 3 % (20-55); Total Cells Counted 100
[2022-10-09 05:59] LABS: Microcytosis 1+; Platelet Estimate Decreased
[2022-10-09] MEDS: ONDANSETRON 4 MG/2 ML VIAL IV PRN ×2 (08:30→14:31)
[2022-10-09] MEDS: INSULIN GLARGINE 100 UNIT/ML SUBCUT SCH (08:37)
[2022-10-09] MEDS: CITALOPRAM 20 MG TABLET PO SCH (08:37)
[2022-10-09] MEDS: HYDROCORTISONE 10 MG TABLET PO SCH (08:37)
[2022-10-09] MEDS: ZINC OXIDE PASTE 113 GM TUBE TOP SCH ×2 (08:37→20:42)
[2022-10-09] MEDS: METOCLOPRAMIDE 10 MG/2 ML VIAL IV PRN ×2 (10:22→17:06)
[2022-10-09] MEDS ORDERED: SODIUM CHLORIDE 0.9% 1,000 ML IV PRN (10:25)
[2022-10-10] MEDS: ALBUTEROL 2.5 MG/3 ML NEB RESP TX SCH ×3 (00:37→13:02)
[2022-10-10] MEDS: INSULIN LISPRO 100 UNIT/ML SUBCUT SCH ×3 (02:10→15:05)
[2022-10-10] MEDS: CLINDAMYCIN INJ 600 MG/50 ML PREMIX IV SCH ×2 (03:07→15:05)
[2022-10-10 05:24] LABS: Basophils % 0.1 % (0.0-0.8); Eosinophils % 0.1 % (0.00-10.9); Hematocrit 27.7 VOL% (35.7-47.0); Hemoglobin 9.1 GM/DL (12.0-16.0); Immature Granulocytes % 0.7 %; Immature Granulocytes Absolute 0.11 #; Lymphocytes # 0.6 10*3/uL (1.4-4.0); Lymphocytes % 3.7 % (21.3-54.2); Mean Corpuscular HGB Conc 32.9 GM/DL (32-36); Mean Corpuscular Volume 81.5 FL (87-102); Monocytes # 0.8 10*3/uL (0.11-0.8); Monocytes % 4.9 % (1.7-12.7); Neutrophils % 90.5 % (38.7-73.9); Platelet Count 86 T/CUMM (130-400); Red Cell Distribution Width 19.3 % (9.3-17.3); White Blood Count 16.5 T/CUMM (4-12)
[2022-10-10 05:36] LABS: Calcium 8.6 MG/DL (8.5-10.1); Osmolality,Calculated 288.8 MOS/KG (273-304)
[2022-10-10 05:54] LABS: Band Neutrophils 2 % (0-10); Lymphocytes 5 % (20-55); Platelet Estimate Decreased; Total Cells Counted 100
[2022-10-10 05:55] LABS: Anisocytosis 1+
[2022-10-10] MEDS: CITALOPRAM 20 MG TABLET PO SCH (08:15)
[2022-10-10] MEDS ORDERED: HYDROCORTISONE 10 MG TABLET PO SCH (09:00)
[2022-10-10] MEDS: INSULIN GLARGINE 100 UNIT/ML SUBCUT SCH (11:34)
[2022-10-10] MEDS: ZINC OXIDE PASTE 113 GM TUBE TOP SCH (11:34)
[2022-10-10] MEDS: ONDANSETRON 4 MG/2 ML VIAL IV PRN (11:35)
[2022-10-10 12:49] VITALS: BP 114/67
== END 2022-10-10 15:15 | DRG 870 ==
LOC: N.ED 09:00 → SUATTDRO 12:29 → N.EDINP 12:29 → N.ICU 14:01 → N.2E 10-09 16:29
PROVIDERS: ADMIT Internal Medicine; ATTEND Hospitalist